=== PATIENT | female | born 1955 | race Caucasian/White ===

== ENCOUNTER → 2021-09-25 12:33 | Outpatient (CLI) | payer SELFPAY ==
[2021-09-25 13:05] LABS: Urine Drug Scr, Empl Non-NIDA See Separate Report
== END ==
DX: Z02.83 Encounter for blood-alcohol and blood-drug test (principal)
CPT/HCPCS: 81099

== ENCOUNTER → 2023-11-22 08:11 | Outpatient (CLI) | payer MEDICARE, SELFPAY ==
[2023-11-22 09:04] LABS: Add Manual Diff / Slide Review NO; Basophils Absolute Auto 100 /uL (0-100); Eosinophils Absolute Auto 100 /uL (0-450); Eosinophils Percent Auto 2.6 % (2-4); Hemoglobin 12.3 g/dL (12.0-16.0); Lymphocytes Absolute Auto 1300 /uL (1100-4500); Lymphocytes Percent Auto 25.9 % (25-40); Mean Corpuscular HGB Conc 33.2 % (30-36); Mean Corpuscular Hemoglobin 28.8 PG (26-34); Mean Corpuscular Volume 86.7 fL (80-100); Monocytes Absolute Auto 300 /uL (0-900); Monocytes Percent Auto 5.9 % (3-14); Neutrophils Absolute Auto 3300 /uL (1500-7000); Neutrophils Percent Auto 64.6 % (50-75); Platelet Count 186 X10^3/uL (150-400); Red Blood Cell Count 4.27 X10^6/uL (4.0-5.2); Red Cell Distribution Width 14.1 % (11.6-14.8); White Blood Cell Count 5.1 X10^3/uL (4.5-11.0)
[2023-11-22 09:11] LABS: Hemoglobin A1C% w Est Avg Glu 6.4 % (4.0-6.0)
[2023-11-22 09:25] LABS: Alanine Aminotransferase 12 IU/L (<35); Albumin 4.4 g/dL (3.5-5.0); Albumin Globulin Ratio 1.8 (1.0-2.8); Alkaline Phosphatase 75 U/L (38-126); Aspartate Aminotransferase 21 IU/L (14-36); BUN Creatinine Ratio 23.4 (6-22); Bilirubin Total 0.5 mg/dL (0.2-1.3); Blood Urea Nitrogen 15 mg/dL (7-17); Carbon Dioxide 26 mmol/L (22-32); Chloride 111 mmol/L (98-107); Cholesterol 146 mg/dL (140-199); Estimated Glomerular Filt Rate > 60 mL/min (>60); Globulin 2.5 g/dL (1.7-4.1); Glucose 102 mg/dL (80-110); HDL Cholesterol 58 mg/dL (40-60); HEMOLYSIS < 15 (0-50); LDL Cholesterol Calculated 69 mg/dL (<100); Potassium 4.1 mmol/L (3.4-5.1); Sodium 140 mmol/L (137-145); Total Protein 6.9 g/dL (6.3-8.2); Triglycerides 93 mg/dL (35-150)
[2023-11-22 10:40] LABS: Creatinine Urine Random 142.8 mg/dL
[2023-11-22 10:44] LABS: Microalbumi Creatinin Ratio Ur 4.9 ug/mg CR (<30); Microalbumin Urine Random 0.7 mg/dL (0-1.6)
== END ==
PROVIDERS: PCP Family Medicine; Referring Provider Family Medicine; Visit Provider Family Medicine
DX: Z00.00 Encounter for general adult medical examination without abnormal findings (principal); E11.9 Type 2 diabetes mellitus without complications; I10 Essential (primary) hypertension; E78.5 Hyperlipidemia, unspecified
CPT/HCPCS: 36415; 80053; 80061; 82043; 82570; 83036; 85025

== ENCOUNTER → 2024-01-12 09:48 | Outpatient (CLI) | payer MEDICARE, SELFPAY ==
[2024-01-12 11:34] LABS: COVID-19 CEPHEID 4-PLEX PCR Negative (Negative); Influenza A - CEPHEID Flu A NEGATIVE (NEGATIVE); Influenza B - CEPHEID Flu B NEGATIVE (NEGATIVE); Respiratory Syncytial Virus Negative (Negative)
== END ==
PROVIDERS: PCP Family Medicine; Visit Provider Nurse Practitioner Family
DX: R05.9 Cough, unspecified (principal)
CPT/HCPCS: 0241U

== ENCOUNTER 2024-01-12 10:09 | Emergency (ER) | payer MEDICARE, SELFPAY ==
[2024-01-12] VITALS (8 sets, daily range): BP systolic 114–147; BP diastolic 55–73; PULSE 72–87; RESP 18; TEMP 37; O2SAT 95–99; BMI 33.4
--- NOTE | 2024-01-12 13:44 | PC.NURSE ---
pt has cough that started two days ago that feels different than usual. she was cleaning her cpap the other night and states that she thinks she may have left a tissue and aspirated it. walk in swabbed her and pt states that shes negative for everything. no respiratory hx, but does have hx of abnormal ecg's and hypertension.
--- NOTE | 2024-01-12 14:00 | EKG_ITS ---
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
--- NOTE | 2024-01-12 14:01 | DI.RAD.S_ITS ---
PROCEDURE: XR CHEST 2V INDICATIONS: cough TECHNIQUE: 2 views of the chest were acquired. COMPARISON: None. FINDINGS: Surgical changes and devices: None. Lungs and pleura: Lungs are clear. No pleural effusions or pneumothorax. Mediastinum: Mediastinal contours are normal. Heart size is normal. Bones and chest wall: No suspicious bony abnormalities. Soft tissues appear unremarkable. IMPRESSION: No acute cardiopulmonary abnormality is seen. Dictated by: David Stewart M.D. on 01/12/2024 at 15:19 Approved by: David Stewart M.D. on 01/12/2024 at 15:20
[2024-01-12 14:26] LABS: Add Manual Diff / Slide Review NO; Basophils Absolute Auto 100 /uL (0-100); Basophils Percent Auto 1.3 % (0-2); Eosinophils Absolute Auto 200 /uL (0-450); Eosinophils Percent Auto 2.7 % (2-4); Hematocrit 36.2 % (36-46); Hemoglobin 12.2 g/dL (12.0-16.0); Lymphocytes Absolute Auto 1500 /uL (1100-4500); Lymphocytes Percent Auto 23.8 % (25-40); Mean Corpuscular HGB Conc 33.7 % (30-36); Mean Corpuscular Hemoglobin 29.1 PG (26-34); Mean Corpuscular Volume 86.3 fL (80-100); Monocytes Absolute Auto 500 /uL (0-900); Monocytes Percent Auto 8.7 % (3-14); Neutrophils Absolute Auto 3900 /uL (1500-7000); Neutrophils Percent Auto 63.5 % (50-75); Platelet Count 198 X10^3/uL (150-400); Red Cell Distribution Width 14.3 % (11.6-14.8); White Blood Cell Count 6.2 X10^3/uL (4.5-11.0)
[2024-01-12 14:34] LABS: INR 0.9 (0.9-1.3); Prothrombin Time 10.6 SECONDS (9.4-12.5)
[2024-01-12 14:37] LABS: PTT Partial Thromboplastin Tim 31 SECONDS (25.1-36.5)
[2024-01-12 14:39] LABS: Alanine Aminotransferase 13 IU/L (<35); Albumin 4.6 g/dL (3.5-5.0); Albumin Globulin Ratio 1.8 (1.0-2.8); Alkaline Phosphatase 87 U/L (38-126); Aspartate Aminotransferase 24 IU/L (14-36); BUN Creatinine Ratio 20.3 (6-22); Bilirubin Total 0.6 mg/dL (0.2-1.3); Blood Urea Nitrogen 15 mg/dL (7-17); Calcium 8.9 mg/dL (8.4-10.2); Carbon Dioxide 23 mmol/L (22-32); Chloride 110 mmol/L (98-107); Creatine Kinase 172 U/L (30-135); Estimated Glomerular Filt Rate > 60 mL/min (>60); Globulin 2.5 g/dL (1.7-4.1); Glucose 94 mg/dL (80-110); HEMOLYSIS < 15 (0-50); Lipase 75 U/L (23-300); Magnesium 2.3 mg/dL (1.6-2.3); Potassium 4.1 mmol/L (3.4-5.1); Sodium 141 mmol/L (137-145); Total Protein 7.1 g/dL (6.3-8.2)
[2024-01-12 14:50] LABS: Troponin I < 0.012 ng/mL (0.01-0.034)
--- NOTE | 2024-01-12 15:07 | ED_ITS ---
HPI - General Adult General Chief complaint: Upper Respiratory Symptoms Stated complaint: bad cough t-2 pain in chest Time Seen by Provider: 01/12/24 14:16 Source: patient Mode of arrival: Ambulatory History of Present Illness HPI narrative: Patient left without being seen Related Data Home Medications Medication Instructions Recorded Confirmed albuterol sulfate 90 mcg/actuation 2 puff inhalation Q4-6H PRN 11/11/23 01/12/24 aerosol inhaler wheezing alprazolam 0.5 mg tablet mg PO 11/11/23 01/12/24 atenolol 25 mg tablet 25 mg PO DAILY 11/11/23 01/12/24 blood sugar diagnostic (OneTouch #10 ea 11/11/23 01/12/24 Verio test strips) losartan 50 mg tablet 50 mg PO DAILY 11/11/23 01/12/24 metformin 500 mg tablet,extended 500 mg PO BID 11/11/23 01/12/24 release 24 hr aspirin 81 mg tablet,delayed 81 mg PO DAILY 11/16/23 01/12/24 release (Adult Low Dose Aspirin) atorvastatin 20 mg tablet 30 mg PO DAILY 12/07/23 01/12/24 Allergies Allergy/AdvReac Type Severity Reaction Status Date / Time tree nut Allergy Severe Anaphylaxis Verified 01/12/24 10:49 Penicillins Allergy Mild Hives Verified 01/12/24 10:49 Patient History Medical History (Updated 01/12/24 @ 15:54 by Chery Watts RN) Wears glasses Seborrheic keratosis Actinic keratosis Raynaud's disease Sleep apnea Allergies Situational anxiety TIA (transient ischemic attack) Knee pain Hip pain Lumbar disc disease Tuberculosis Mumps Measles Chicken pox Cataracts, bilateral (~2020) Herpes Fibroids Diverticular disease Deep vein thrombosis (~2013) Cardiac arrhythmia BCC (basal cell carcinoma) Obesity (BMI 30.0-34.9) Hyperlipidemia Hypertension Diabetes mellitus type 2, controlled, without complications (~1999) Family History (Updated 12/26/23 @ 20:09 by Lauren Mcginnis) Father Hyperlipidemia Mother Hyperlipidemia Sister Hyperlipidemia Sister Hypertension Hyperlipidemia Grandmother Diabetes mellitus Family/Other Hypothyroidism Social History Smoking Status: Never smoker Smoking Status: Never smoker alcohol intake frequency: 0-2 drinks per day Substance Use Type: does not use Exam Initial Vital Signs Initial Vital Signs: Vital Signs Temperature 98.6 F 01/12/24 10:45 Pulse Rate 87 01/12/24 10:45 Respiratory Rate 18 01/12/24 10:45 Blood Pressure 143/68 H 01/12/24 10:45 Pulse Oximetry 97 01/12/24 10:45 Oxygen Delivery Method Room Air 01/12/24 10:45 Course Orders Ordered: ED Orders 01/12/24 14:00 EKG-12 Lead Stat 01/12/24 14:01 Chest [XR chest 2V] Stat 01/12/24 14:15 Complete Blood Count AUTO DIFF Stat Comprehensive Metabolic Panel Stat Lipase Stat Magnesium Stat PTT Partial Thromboplastin Dominick Stat Prothrombin Time INR Stat Troponin & CK Cardiac Panel Stat 01/12/24 14:46 EKG-12 Lead Stat Vital Signs Vital signs: Vital Signs - 8 hr 01/12/24 13:16 01/12/24 13:16 01/12/24 13:30 Pulse Rate 79 80 Blood Pressure 147/67 H Pulse Oximetry 98 97 01/12/24 13:30 01/12/24 14:00 01/12/24 14:00 Pulse Rate 75 Blood Pressure 117/58 L 114/57 L Pulse Oximetry 99 01/12/24 14:48 01/12/24 14:49 01/12/24 14:49 Pulse Rate 72 73 Blood Pressure 137/73 Pulse Oximetry 97 99 01/12/24 15:00 01/12/24 15:00 01/12/24 15:30 Pulse Rate 76 80 Blood Pressure 121/55 L Pulse Oximetry 95 99 01/12/24 15:30 Pulse Rate Blood Pressure 125/60 Pulse Oximetry Medical Decision Making Lab Data 01/12/24 14:15 01/12/24 14:15 Labs: Lab Results 01/12/24 Range/Units 14:15 WBC 6.2 (4.5-11.0) X10^3/uL RBC 4.20 (4.0-5.2) X10^6/uL Hgb 12.2 (12.0-16.0) g/dL Hct 36.2 (36-46) % MCV 86.3 (80-100) fL MCH 29.1 (26-34) PG MCHC 33.7 (30-36) % RDW 14.3 (11.6-14.8) % Plt Count 198 (150-400) X10^3/uL Neut % (Auto) 63.5 (50-75) % Lymph % (Auto) 23.8 L (25-40) % [place] % (Auto) 8.7 (3-14) % Eos % (Auto) 2.7 (2-4) % Baso % (Auto) 1.3 (0-2) % Neut # (Auto) 3900 (8596-1635) /uL Lymph # (Auto) 1500 (2989-8560) /uL [place] # (Auto) 500 (0-900) /uL Eos # (Auto) 200 (0-450) /uL Baso # (Auto) 100 (0-100) /uL PT 10.6 (9.4-12.5) SECONDS INR 0.9 (0.9-1.3) APTT 31 (25.1-36.5) SECONDS Sodium 141 (137-145) mmol/L Potassium 4.1 (3.4-5.1) mmol/L Chloride 110 H (98-107) mmol/L Carbon Dioxide 23 (22-32) mmol/L BUN 15 (7-17) mg/dL Creatinine 0.74 (0.52-1.04) mg/dL Estimated GFR > 60 (>60) mL/min BUN/Creatinine Ratio 20.3 (6-22) Glucose 94 (80-110) mg/dL Calcium 8.9 (8.4-10.2) mg/dL Magnesium 2.3 (1.6-2.3) mg/dL Total Bilirubin 0.6 (0.2-1.3) mg/dL AST 24 (14-36) IU/L ALT 13 (<35) IU/L Alkaline Phosphatase 87 (38-126) U/L Total Creatine Kinase 172 H (30-135) U/L Troponin I < 0.012 (0.01-0.034) ng/mL Total Protein 7.1 (6.3-8.2) g/dL Albumin 4.6 (3.5-5.0) g/dL Globulin 2.5 (1.7-4.1) g/dL Albumin/Globulin Ratio 1.8 (1.0-2.8) Lipase 75 (23-300) U/L Imaging Data Chest x-ray: Radiologist's Impression: Crystal Frances??68??F??1955 ? Allergy/Adv: tree nut, Penicillins Close Chest X-Ray (Signed) David Stewart - 01/12/24 Launch?[address] [address] XRay Report Signed Patient: Crystal Frances MR#: [id number] : 1955 Acct:[id number] Age/Sex: 68 / F Date of Service: 01/12/24 Loc: ED Accession Number: [id number] Procedure: XR chest 2V Ordering Provider: Izabela Payne D.O. PROCEDURE: XR CHEST 2V INDICATIONS: cough TECHNIQUE: 2 views of the chest were acquired. COMPARISON: None. FINDINGS: Surgical changes and devices: None. Lungs and pleura: Lungs are clear. No pleural effusions or pneumothorax. Mediastinum: Mediastinal contours are normal. Heart size is normal. Bones and chest wall: No suspicious bony abnormalities. Soft tissues appear unremarkable. IMPRESSION: No acute cardiopulmonary abnormality is seen. Dictated by: David Stewart M.D. on 01/12/2024 at 15:19 Approved by: David Stewart M.D. on 01/12/2024 at 15:20 ECG Data Attestation: I personally reviewed and interpreted this ECG as follows: Prior ECG tracings: not available for review Interpretation: Sinus rhythm rate of 71 [place] 132 QRS 88 QTC 419, U wave in lead 3 and AVF. T-wave inversion in lateral leads. No priors available for comparison. MDM Narrative Medical decision making narrative: CBC shows lymphs are low, otherwise normal white count, hemoglobin and platelets. Coags are negative chloride 110 electrolytes are normal BUN is normal, total CK is 172 troponin was less than 0.012. Discharge Plan Departure Patient Disposition: Left Without Being Seen Clinical Impression: Patient left before evaluation by physician Prescriptions: No Action aspirin [Adult Low Dose Aspirin] 81 mg tablet,delayed release (DR/EC) 81 mg PO DAILY albuterol sulfate 90 mcg/actuation HFA aerosol inhaler 2 puff inhalation Q4-6H PRN (Reason: wheezing) alprazolam 0.5 mg tablet PO atenolol 25 mg tablet 25 mg PO DAILY losartan 50 mg tablet 50 mg PO DAILY metformin 500 mg tablet extended release 24 hr 500 mg PO BID Hold Instructions: trial alternative med (DME) [employer] Verio test strips Strip See Rx Instructions .ROUTE BID Qty: 10 Rx Instructions: As directed atorvastatin 20 mg tablet 30 mg PO DAILY
--- NOTE | 2024-01-12 15:17 | PC.NURSE ---
pt expressed to this RN that she would like to leave, she believes that we are doing unnecessary things. pt is getting anxious about the mcnair of the visit
== END 2024-01-12 15:48 | disposition left against medical advice (07) ==
PROVIDERS: Emergency Provider Emergency Medicine; PCP Family Medicine
DX: R05.9 Cough, unspecified (principal); R07.9 Chest pain, unspecified; Z20.822 Contact with and (suspected) exposure to COVID-19
CPT/HCPCS: 0241U; 36415; 71046; 80053; 82550; 83690; 83735; 84484; 85025; 85610; 85730; 93005; 99283

== ENCOUNTER → 2024-01-25 09:03 | Outpatient (CLI) | payer MEDICARE, SELFPAY ==
--- NOTE | 2024-02-09 17:29 | DIAB.MNT ---
Initial Diabetes Medical Nutrition Therapy Assessment Name: Crystal Frances Date: 01/25/24 Time: 910-10a Dx: Type II Diabetes Crystal presents for initial Dm visit. PMH of Dm x 3 years. Has had DM education. States she has never had a hgA1c above 7%. Recent labs 6.4%. Main questions today are about nutrition and GLP1 therapy. States she is wondering if she would need GLP1 therapy indefinitely if starting. States daughter lost 40# on Mounjaro. has questions regarding muscle loss with these meds and protein recs. Endorses heart hx (including abnormal EKG, cardiac plaque, HTN, HLD) and sees cardiology. 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 Diet Recall: 830a: 1 rye toast with sun butter, 2c coffee with soy milk 1130a: oatmeal x 1c, dried berries and evin 2-5p: cottage cheese and fruit OR toast OR 1-2 mini candies OR high fiber tortillas with cheese OR corn ships 630p: protein with veggie and sometimes brown chidi or half potato 730p: small sf hard candy Anthropometrics: Ht: 5'1.5 Wt: 177.25# 11/2023 Physical Activity: 30 min walking 3-4x per week, knee pain sometimes impairs walking, plans to ask for PT referral Self-Monitoring Blood Glucose: Checks FB-115 usually. Sometimes checks pc: 130s, oatmeal sometimes up to 210mg/dl. Under 70 infrequently and feels unwell, no other symptoms. Diabetes Medications: 500mg Metfomrin BID Pertinent Labs: 6.4% hgA1c 10/2023 Past Medical History: (Last Updated 12/26/23 @ 20:06 by Lauren Mcginnis) Actinic keratosis Allergies BCC (basal cell carcinoma) Cardiac arrhythmia Cataracts, bilateral (~2020) Chicken pox Deep vein thrombosis (~2013) Diabetes mellitus type 2, controlled, without complications (~1999) Diverticular disease Fibroids Herpes Hip pain Hyperlipidemia Hypertension Knee pain Lumbar disc disease Measles Mumps Obesity (BMI 30.0-34.9) Raynaud's disease Seborrheic keratosis Situational anxiety Flying Sleep apnea CPAP TIA (transient ischemic attack) Maybe Tuberculosis Wears glasses Nutrition Rx: Carbohydrates: Meal:30-45g Snack:15-30g Protein: 80-95g per day Nutrition Diagnosis: - Food and nutrition related knowledge deficit r/t needing refresher on carb recs and pairing macros aeb diet recall and pt report Intervention: This participant was very receptive. Provided appropriate educational handouts. Discussed the following topics: Completed intake assessment. Discussed barriers to care. BG review and impact of meals Plate Method, impact of macronutrients on blood sugar, meal timing, carbohydrate counting, pairing macronutrients and spreading out carbohydrates for better blood glucose management Recommended servings for carbohydrates at meals and snacks [facility] nutrition Brainstormed appropriate meal/snack ideas based on food preferences GLP1 RA impact on appetite and likelihood of jail use if taking for wt loss LBM loss with any wt loss, especially fast wt loss Protein recs Role of physical activity and following provider guidelines for safety Created SMART goals for patient self-care and success. Goals: Add protein to oatmeal Set afternoon snack and pair macros Aim for 80-95g protein per day (20-30g at meals 7-14g at snacks) Follow-up: [facility]AME [facility]IXON follow-up prn. Crystal would like to follow-up prn, which this RD agrees with. Encouraged her to call or message with questions or f/u needs prn. Yuliet Townsend, MA[facility], [facility] Certified Diabetes Care and Card Painter P: [phone] Thank you for this referral
== END ==
LOC: DIET 09:04
PROVIDERS: PCP Family Medicine; Referring Provider Family Medicine
DX: E11.9 Type 2 diabetes mellitus without complications (principal); Z71.3 Dietary counseling and surveillance; Z79.84 Long term (current) use of oral hypoglycemic drugs
CPT/HCPCS: 97802

== ENCOUNTER → 2024-03-13 10:58 | Outpatient (CLI) | payer MEDICARE, SELFPAY ==
--- NOTE | 2024-03-13 10:59 | DI.RAD.S_ITS ---
PROCEDURE: XR KNEE LT 3V INDICATIONS: Left knee pain TECHNIQUE: 3 views of the knee were acquired. COMPARISON: None. FINDINGS: Bones: Osteopenia. No acute fractures or dislocations. No suspicious bony lesions. Soft tissues: No radiographically evident suprapatellar joint effusion. IMPRESSION: No acute bony abnormality or significant effusion. Dictated by: Max Stephenson M.D. on 03/13/2024 at 15:30 Approved by: Max Stephenson M.D. on 03/13/2024 at 15:32
== END ==
PROVIDERS: PCP Student in an Organized Health Care Education/Training Program; Referring Provider Student in an Organized Health Care Education/Training Program; Visit Provider Student in an Organized Health Care Education/Training Program
DX: M25.562 Pain in left knee (principal)
CPT/HCPCS: 73562

== ENCOUNTER → 2024-05-02 11:31 | Outpatient (CLI) | payer MEDICARE, SELFPAY ==
--- NOTE | 2024-05-02 11:32 | DI.RAD.S_ITS ---
PROCEDURE: XR DEXA AXIAL SKELETON INDICATIONS: Bone Density Screening COMPARISON: None. FINDINGS: Lumbar Spine: Bone mineral density 1.041 g/cm2, T score -0.1. Left Hip: Bone mineral density 0.829 g/cm2, T score -0.9. Left Femoral Neck: Bone mineral density 0.729 g/cm2, T score -1.1. Right Hip: Bone mineral density 0.950 g/cm2, T score 0.1. Right Femoral Neck: Bone mineral density 0.814 g/cm2, T score -0.3. Fracture Risk Calculation (when applicable): 10-year fracture risk of a major osteoporotic fracture 8.5 % and of a hip fracture 0.8 %. (T score greater or equal to -1.0 to: NORMAL) (T score from -1.1 to -2.4: OSTEOPENIA) (T score less than or equal to -2.5: OSTEOPOROSIS) IMPRESSION: By WHO criteria, patient has osteopenia. Follow-up guidelines as follows: Osteoporosis: Consider a repeat DEXA and Vertebral Fracture Assessment (VFA) exam in 2 years or sooner if medically necessary, to reassess this patient's status. Osteopenia: Consider a repeat DEXA in 2-3 years to reassess this patient's status, or if there is a new clinical indication. Normal: Consider a repeat DEXA in 5 years or sooner, or if there is a new clinical indication. All treatment decisions require clinical judgment and consideration of individual patient factors, including patient preferences, comorbidities, previous drug use, risk factors not captured in the FRAX model (e.g., frailty, falls, vitamin D deficiency, increased bone turnover, interval significant decline in bone density ) and possible under- or over-estimation of fracture risk by FRAX. In addition, the NOF Guide recommends that FDA-approved medical therapies be considered in postmenopausal women and men age >= 50 years with a: * Hip or vertebral (clinical or morphometric) fracture * T-score of <=-2.5 at the spine or hip * Ten-year fracture probability by FRAX of >= 3% for hip fracture or >=20% for major osteoporotic fracture. People with diagnosed cases of osteoporosis or at high risk for fracture should have regular bone mineral density tests. For patients eligible for Medicare, routine testing is allowed once every 2 years. The testing frequency can be increased to one year for patients who have rapidly progressing disease, those who are receiving or discontinuing medical therapy to restore bone mass, or have additional risk factors. Approved by: Gavin Joseph M.D. on 05/02/2024 at 15:56
== END ==
PROVIDERS: PCP Student in an Organized Health Care Education/Training Program; Referring Provider Student in an Organized Health Care Education/Training Program; Visit Provider Student in an Organized Health Care Education/Training Program
DX: M85.89 Other specified disorders of bone density and structure, multiple sites (principal)
CPT/HCPCS: 77080

== ENCOUNTER → 2024-05-15 09:36 | Outpatient (CLI) | payer MEDICARE, SELFPAY ==
[2024-05-15 11:18] LABS: TSH w/ Reflex to FT4 1.66 uIU/mL (0.47-4.68)
[2024-05-15 12:16] LABS: Hemoglobin A1C% w Est Avg Glu 5.9 % (4.0-6.0)
== END ==
LOC: LAB 09:37
PROVIDERS: PCP Student in an Organized Health Care Education/Training Program; Referring Provider Student in an Organized Health Care Education/Training Program; Visit Provider Student in an Organized Health Care Education/Training Program
DX: E11.9 Type 2 diabetes mellitus without complications (principal); R42 Dizziness and giddiness
CPT/HCPCS: 36415; 83036; 84443

== ENCOUNTER → 2024-07-24 09:25 | Outpatient (CLI) | payer MEDICARE, SELFPAY ==
--- NOTE | 2024-07-24 09:46 | EKG_ITS ---
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
[2024-07-24 09:48] LABS: Appearance Urine UA CLEAR; Bilirubin Urine UA NEGATIVE (NEGATIVE); Color Urine UA YELLOW; Glucose Urine UA NEGATIVE (Negative); Ketones Urine UA NEGATIVE (NEGATIVE); Leukocyte Esterase Urine UA NEGATIVE (NEGATIVE); Nitrite Urine UA NEGATIVE (Negative); Occult Blood Urine UA NEGATIVE (Negative); Protein Urine UA NEGATIVE (Negative); Specific Gravity Urine UA <=1.005 (1.000-1.035); Urobilinogen Urine UA 0.2 E.U./dL (0.2); pH Urine UA 5.5 (4.5-8.0)
[2024-07-24 09:57] LABS: Bacteria Urine Occasional (0-1); RBC Urine 0-1/HPF (0-5/HPF); Squamous Epithelial Cell Urine 0-1 /HPF (0-5/HPF); Urine Volume 10mL (spun); WBC Urine 0-1/HPF (0-5/HPF)
[2024-07-24 09:58] LABS: Culture Indicated Urine Cult Not Indicated
[2024-07-24 10:18] LABS: Add Manual Diff / Slide Review NO; Basophils Absolute Auto 100 /uL (0-100); Eosinophils Absolute Auto 200 /uL (0-450); Eosinophils Percent Auto 2.1 % (2-4); Hematocrit 39.2 % (36-46); Hemoglobin 13.2 g/dL (12.0-16.0); Lymphocytes Absolute Auto 1700 /uL (1100-4500); Lymphocytes Percent Auto 22.5 % (25-40); Mean Corpuscular HGB Conc 33.6 % (30-36); Mean Corpuscular Hemoglobin 29.2 PG (26-34); Mean Corpuscular Volume 86.9 fL (80-100); Monocytes Absolute Auto 400 /uL (0-900); Neutrophils Absolute Auto 5200 /uL (1500-7000); Neutrophils Percent Auto 69.4 % (50-75); Platelet Count 235 X10^3/uL (150-400); Red Blood Cell Count 4.51 X10^6/uL (4.0-5.2); Red Cell Distribution Width 14.7 % (11.6-14.8); White Blood Cell Count 7.4 X10^3/uL (4.5-11.0)
[2024-07-24 10:42] LABS: Hemoglobin A1C% w Est Avg Glu 5.5 % (4.0-6.0)
[2024-07-24 10:52] LABS: Blood Urea Nitrogen 18 mg/dL (7-17); Calcium 9.7 mg/dL (8.4-10.2); Carbon Dioxide 25 mmol/L (22-32); Chloride 105 mmol/L (98-107); Estimated Glomerular Filt Rate > 60 mL/min (>60); Glucose 92 mg/dL (80-110); HEMOLYSIS < 15 (0-50); Potassium 3.9 mmol/L (3.4-5.1); Sodium 139 mmol/L (137-145)
== END ==
PROVIDERS: PCP Student in an Organized Health Care Education/Training Program; Referring Provider Orthopaedic Surgery; Visit Provider Orthopaedic Surgery
DX: Z01.818 Encounter for other preprocedural examination (principal); R73.9 Hyperglycemia, unspecified; Z01.812 Encounter for preprocedural laboratory examination; N39.0 Urinary tract infection, site not specified; E78.5 Hyperlipidemia, unspecified; I10 Essential (primary) hypertension; E66.9 Obesity, unspecified; E11.9 Type 2 diabetes mellitus without complications
CPT/HCPCS: 36415; 80048; 81001; 83036; 85025; 93005

== ENCOUNTER → 2024-07-31 07:27 | Outpatient (CLI) | payer MEDICARE, SELFPAY ==
--- NOTE | 2024-07-31 07:28 | DI.MRI.S_ITS ---
PROCEDURE: MR HEAD/BRAIN WO CON INDICATIONS: Carotid artery aneurysm TECHNIQUE: Non-contrast axial T1 spin echo, axial T2 fast spin echo, sagittal and axial FLAIR, coronal T2 fast spin echo, axial gradient echo, axial diffusion and ADC through the brain. COMPARISON: None. FINDINGS: Image quality: Excellent. CSF spaces: Ventricles appear symmetric in size and shape. Basal cisterns are patent. No extra-axial fluid collections. Brain: No intracranial bleeds or mass effects. There is cerebral volume loss for age. There are periventricular and deep white matter chronic small vessel ischemic changes. Brainstem appears normal. Diffusion-weighted images show no acute infarct. No chronic ischemic insults. Normal intravascular flow voids are present. Skull and face: Calvarial bone marrow is normal in signal. Orbits are normal. Sinuses: Sinuses and mastoids are clear. IMPRESSION: No acute intracranial abnormalities. Mild age-related global volume loss and chronic microvascular ischemic changes. History of carotid artery aneurysm. The arterial system is not well evaluated on this exam. If further evaluation of an aneurysm is warranted, CT angio of the head or MR angio of the head can be obtained. Dictated by: Robert Lovett M.D. on 07/31/2024 at 13:24 Approved by: Robert Lovett M.D. on 07/31/2024 at 13:26
[2024-07-31 08:34] LABS: Appearance Urine UA CLEAR; Bilirubin Urine UA NEGATIVE (NEGATIVE); Color Urine UA YELLOW; Glucose Urine UA NEGATIVE (Negative); Ketones Urine UA NEGATIVE (NEGATIVE); Leukocyte Esterase Urine UA NEGATIVE (NEGATIVE); Nitrite Urine UA NEGATIVE (Negative); Occult Blood Urine UA NEGATIVE (Negative); Protein Urine UA NEGATIVE (Negative); Specific Gravity Urine UA <=1.005 (1.000-1.035); Urobilinogen Urine UA 0.2 E.U./dL (0.2)
[2024-07-31 08:43] LABS: pH Urine UA 5.5 (4.5-8.0)
[2024-07-31 08:44] LABS: Bacteria Urine None Seen; Culture Indicated Urine Cult Not Indicated; RBC Urine None Seen (0-5/HPF); Squamous Epithelial Cell Urine None Seen (0-5/HPF); Urine Volume 10mL (spun); WBC Urine None Seen (0-5/HPF)
== END ==
PROVIDERS: PCP Student in an Organized Health Care Education/Training Program; Referring Provider Student in an Organized Health Care Education/Training Program; Visit Provider Student in an Organized Health Care Education/Training Program
DX: I72.0 Aneurysm of carotid artery (principal); R79.89 Other specified abnormal findings of blood chemistry
CPT/HCPCS: 70551; 81001

== ENCOUNTER → 2024-08-14 10:23 | Outpatient (CLI) | payer MEDICARE, SELFPAY ==
--- NOTE | 2024-08-14 10:24 | DI.CT.S_ITS ---
PROCEDURE: CT ANGIO HEAD AND NECK INDICATIONS: carotid artery aneurysm f/u TECHNIQUE: After the administration of intravenous contrast, 1 mm thick sections acquired from the aortic arch through the [place]. 3-dimensional qaxcaul-jgarvlglb-wsdqheccbp (MIP) and/or volume rendering reformats were acquired of the central intracranial vasculature and neck separately. For radiation dose reduction, the following was used: automated exposure control, adjustment of mA and/or kV according to patient size. COMPARISON: Outside Facility, MR, MR ANGIO NECK W CON, 05/20/2023, 12:30. Outside Facility, MR, MR HEAD/BRAIN WO CON, 05/20/2023, 13:04. Outside Facility, MR, MR ANGIO HEAD WO CON, 05/20/2023, 13:04. [facility], MR, MR HEAD/BRAIN WO CON, 07/31/2024, 7:47. FINDINGS: Image quality: There is streak artifact seen through the level of the shoulders. The BRAIN: CSF spaces: Ventricles are normal in size and shape. Basal cisterns are patent. No extra-axial fluid collections. Brain: No significant abnormality of the brain can be seen. Skull and face: Calvarium and facial bones appear intact, without suspicious lesions. Orbits appear normal. Sinuses: Sinuses and mastoids are clear. HEAD CT ANGIOGRAPHY: Anterior circulation: On the prior outside examination, there is described an aneurysm involving the right supraclinoid intracranial internal carotid artery. No definite aneurysm is seen at this site. A intracranial internal carotid arteries elsewhere also appear normal. The flow within the paired anterior cerebral arteries is normal and symmetric. The flow within the middle cerebral arteries is normal and symmetric. The anterior communicating artery is seen. No aneurysms are seen. Posterior circulation: Visualized portions of the vertebral arteries demonstrate normal caliber, and join to form a normal appearing basilar artery. Flow within the posterior cerebral arteries is normal and symmetric. No aneurysms are seen. NECK CT ANGIOGRAPHY: Carotid system: The great vessels demonstrate a conventional anatomy as they arise from the aortic arch. The origins of the common carotid arteries appear patent. The common carotid arteries demonstrate normal caliber and courses. The bifurcation regions are both widely patent. The internal carotid arteries demonstrate normal calibers and courses. Posterior circulation: The origins of the vertebral arteries both appear widely patent. The more superior extracranial portions of both vertebral arteries also demonstrate normal courses and calibers. They join to form a normal appearing basilar artery. Soft tissues: Visualized neck soft tissues demonstrate no suspicious abnormalities. Bones: No suspicious bony lesions. Visualized cervical spine appears normally aligned. 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 No intracranial aneurysm is seen. No significant intracranial arterial abnormality is seen. No significant abnormality is seen within the arteries of the neck. Any quantitative measurements of stenosis were performed using NASCET criteria. Dictated by: Eduardo Vrema M.D. on 08/14/2024 at 13:45 Approved by: Eduardo Verma M.D. on 08/14/2024 at 13:50
== END ==
LOC: CT 10:24
PROVIDERS: PCP Student in an Organized Health Care Education/Training Program; Referring Provider Student in an Organized Health Care Education/Training Program; Visit Provider Student in an Organized Health Care Education/Training Program
DX: I72.0 Aneurysm of carotid artery (principal)
CPT/HCPCS: 70496; 70498; Q9967

== ENCOUNTER 2024-08-28 05:57 | Day surgery (SDC) | payer MEDICARE, SELFPAY ==
[2024-08-21 08:17] VITALS: BMI 27.6
[2024-08-28] VITALS (17 sets, daily range): BP systolic 93–128; BP diastolic 44–74; PULSE 15–124; RESP 10–21; TEMP 35.8–37.1; O2SAT 95–100; BMI 28.3
--- NOTE | 2024-08-28 06:00 | DI.RAD.S_ITS ---
PROCEDURE: XR HIP W PEL IF DONE LT 2V INDICATIONS: HAJA TECHNIQUE: AP pelvis and lateral view of the hip acquired. COMPARISON: [facility], CR, [id number] W PEL IF PERFORMED, 08/28/2024, 9:14. FINDINGS: Bones: Patient is status post left hip arthroplasty, with hardware components in expected positions. The hip joint appears congruent. The visualized bony structures appear intact. Soft tissues: Overlying postoperative changes are noted. No suspicious soft tissue densities. IMPRESSION: Expected post-operative appearance of a hip arthroplasty. Dictated by: Robert Lovett M.D. on 08/28/2024 at 15:15 Approved by: Robert Lovett M.D. on 08/28/2024 at 15:15
[2024-08-28] MEDS: VANCOMYCIN 1,000 MG/200 ML PIGGYBACK 200 MG IV (07:01)
[2024-08-28] MEDS: LACTATED RINGERS 1,000 ML 42 ML IV ×3 (07:03→11:10)
[2024-08-28] MEDS: CELECOXIB 200 MG CAPSULE PO (07:04)
[2024-08-28] MEDS: ACETAMINOPHEN 325 MG TABLET 975 MG PO (07:04)
--- NOTE | 2024-08-28 07:29 | SUR.OPER ---
Supine on padded [place] table with bilateral legs secured in padded positioning boots and suspended in positioning spars, operative leg in traction per surgeon. Head on one pillow. Arm on non-operative side secured on padded armboard <90 degrees abduction. Arm on operative side padded and resting across chest then secured with tape over sheet. Padded perineal post in place per surgeon.
--- NOTE | 2024-08-28 07:44 | PM.PREOP ---
Pre-operative Note Interval Note History & Physical reviewed/Exam performed by Physician: Yes Changes to H&P: No
[2024-08-28] MEDS: CEFAZOLIN 2 GM/100 ML PREMIX 100 ML IV ×2 (08:00→16:30)
[2024-08-28] MEDS: BUPIVACAINE 0.25% W/ EPI 30 ML VIAL 60 ML INJ (08:25)
[2024-08-28] MEDS: BUPIVACAINE LIPOSOME 266 MG/20 ML VIAL INJ (08:26)
--- NOTE | 2024-08-28 10:04 | DI.RAD.S_ITS ---
PROCEDURE: [id number] W PEL IF PERFORMED INDICATIONS: TOTAL LEFT HIP ARTHROPLASTY TECHNIQUE: 4 intraoperative fluoroscopic view(s) of the left hip(s). COMPARISON: None. FINDINGS: Intraoperative fluoroscopic images shows left total hip arthroplasty in progress. IMPRESSION: Fluoro guidance was provided intraoperatively for left total hip arthroplasty performed by ordering physician. Dictated by: Salo Aguilera M.D. on 08/28/2024 at 10:28 Approved by: Salo Aguilera M.D. on 08/28/2024 at 10:29
--- NOTE | 2024-08-28 10:32 | P.OP_ITS ---
Operative Date/Time/Diagnoses Date of procedure: 08/28/24 Time of procedure: 08:00 Pre-op diagnosis: Left hip AVN and OA Post-op diagnosis: same Procedure & Clinicians Procedure: Left total hip arthroplasty anterior approach Same procedure as scheduled: Yes Indications: The patient has had progressively worsening left hip pain with radiographic changes consistent with arthritis. Non-operative management has failed and the patient has requested total hip replacement. The risks, benefits and alternatives to surgery were discussed with the patient prior to proceeding. Risks discussed included, but were not limited to, failure to relieve pain, leg length discrepancy, dislocation, stiffness, infection, nerve damage, deep venous thrombosis, pulmonary embolism, stroke, coma, heart attack, permanent paralysis and , as well as the potential need for eventual revision of the prosthetic. Surgeon: Yeu Quigley Supervisor Filling And Packing: Britni Parker Anesthesia Type: General and Spinal Operative Notes Findings: Very small head, soft bone, adequate stability Closure Type: primary Specimen(s): none sent Prosthetic devices, grafts, tissues, transplants, or devices: Quigley and nephew 44 mm R3, neutral poly liner,one 6.5 mm screw, 28 x -3 cobalt chrome head, polar stem size 0 with collar standard Estimated Blood Loss (mL): 250 Blood products transfused: none Procedure in detail: The patient was brought to the operating room. Patient was carefully positioned in the supine position. Time-out was performed and antibiotics were given. Anesthesia was induced. She was positioned in the on the table in order to allow hyperextension of the hip. The left lower extremity was prepped and draped in a standard sterile fashion. An anterior left hip incision was made 1 fingerbreadth lateral to the anterior superior iliac spine and extended distally towards the greater trochanter. Dissection was carried out through skin and subcutaneous tissues. Superficial hemostasis was achieved. The fascia over the tensor fascia mynor was defined and incised with a knife. Two Allis clamps were used to grasp the fascia. Tensor fascia mynor was retracted laterally. A gelpi retractor was placed. Dissection was carried out down along the neck. The circumflex vessels were carefully identified and cauterized with the Aqua Mantis. The PA was used during the procedure and was essential for intraoperative retraction and safe implantation of the components. There was good visualization of the femoral neck. A Cobra was placed superior to the neck and the gluteus fibers were carefully stripped from that superior aspect of the capsule. A 2nd retractor was placed along the inferior aspect of the neck. The rectus insertion along the capsule was partially released. A 3rd retractor that was then gently placed over the rim of the acetabulum under the rectus. Capsule was carefully incised and released from the intertrochanteric line circumferentially superior to the mid sagittal line and inferiorly to the mid sagittal line until the lesser trochanter was palpable. A tag stitch was placed both in the superior and inferior limb of the capsular insertion. Along the acetabulum capsule was also released up to the mid sagittal 12:00 position. A portion of the labrum was resected. A saw was used to perform an osteotomy at the level of the intertrochanteric line and the junction of the superior femoral neck leaving approximately 1 finger breath of residual inferior neck above the lesser trochanter. A 2nd cut was made along the femoral neck at the base of the head and a napkin ring of neck was removed. Corkscrew was placed in the femoral head and the head was removed without difficulty. Retractors were then repositioned around the acetabulum. Residual labrum was resected and additional osteophytes were re moved. A reamer that was 4 mm below the templated size was placed by hand in the acetabulum and it was reamed to centralize the acetabulum. It was then reamed up to 2 under the templated size and fluoroscopy was brought in to confirm the position of the reaming and depth of reaming. I reamed 1 under the anticipated size. A trial cup was placed and noted that it was appropriately sized and fluoroscopy confirmed position and depth. The component was open and inserted without difficulty fluoroscopic imaging was used to confirm that the cup had been adequately seated and was well positioned. It was further stabilized with a single screw. Neutral poly liner was placed. The cup was tested and noted to be stable. Attention was then directed to the femur. The femur was gently hyperextended ad ditional capsular release was performed as needed in order to allow adequate visualization of the proximal femur with elevation of the femur. Patient was placed in a hyperextended slightly adducted position with maximum external rotation. Box osteotome was used to check for any residual neck as well as sclerotic bone along the trochanter. [place] pepper was placed in the femur. Additional broaching was performed. Canal finder was used to determine the alignment of the canal and position. Size 1 broach was placed. The canal was then appropriately broached up to the templated size as long as there was adequate stability of the broach and serial advancement of the broach without excessive impingement. Specific attention was directed at avoiding varus attempting to direct the distal aspect of the broach more anteriorly and avoiding excessive anteversion. Trial reduction showed acceptable range of motion, good stability, no posterior impingement, muslim of leg length and appropriate lateral shuck. I also hyperflexed the hip and checked that there was no impingement anteriorly and there was good stability with flexion, adduction and internal rotation. Marcaine and Exparel were injected. The stem was placed without difficulty. Repeat trial reduction and x-ray showed acceptable overall position, length, and no evidence of the femoral fracture. Final head was placed. Wound was meticulously irrigated with normal saline. The hip was reduced and additional Exparel and Marcaine were injected. The capsule was closed with interrupted nonabsorbable sutures. The fascia of the tensor was closed with interrupted and running Vicryl. No drain was placed. Any tensor fascia mynor muscle that appeared to be contused or injured which was a minimal amount was carefully resected. Capsule around the tensor was injected with Exparel and Marcaine. The skin was closed with barbed stitches for the subcutaneous tissue and skin. We also used surgical glue. The wound was dressed sterilely. Brief Betadine soak was also used and was meticulously irrigated with normal saline. Patient was transferred to recovery room in satisfactory condition. Complications: none Post-operative Condition: stable Disposition: Acute Care Plan for aftercare: The patient will be maintained on a standard total hip replacement protocol with weight bearing as tolerated and anterior hip precautions. The patient will receive Xarelto starting tomorrow and sequential compression devices for DVT prophylaxis. The patient will be discharged home when safe for the home environment.
[2024-08-28] MEDS: HYDROMORPHONE 1 MG INJ IV (11:24)
--- NOTE | 2024-08-28 11:40 | SUR.PHASEI ---
Report called to Mariah Winn
--- NOTE | 2024-08-28 11:51 | SUR.PHASEI ---
Patient transferred to the floor by DORINDA Marques, with her belongings bag and CPAP.
--- NOTE | 2024-08-28 13:15 | PC.NURSE ---
Pt to room 222 via bed from PACU. Pt is awake alert and oriented. IV infusing as ordered. SCD's on and running, Bed alarm on for safety. O2 sat 100% on RA. Pt initially c/o dizziness which has since resolved. Oriented Pt to room, call light, bed controls, and tv controls. Pt agrees to call for assistance as needed and to not get up without assistance.
--- NOTE | 2024-08-28 14:35 | PT.IIE ---
Current Diagnoses Unilateral primary osteoarthritis, left hip (08/28/24) Surgery Performed Operation Date: 08/28/24 07:45 Actual Procedures p Total Hip Arthroplasty/Anterior Approach(Left) - Yue Quigley MD Surgical History (Last Updated 08/21/24 @ 10:16 by Rozina Correa, RN) History of History of hysteroscopy Hx of appendectomy Hx of tubal ligation Medical History (Last Updated 08/21/24 @ 10:23 by Rozina Correa RN) Abscess (2013) Actinic keratosis Allergies BCC (basal cell carcinoma) Cardiac arrhythmia Cataracts, bilateral (~2020) Chicken pox Deep vein thrombosis (~2013) Diabetes mellitus type 2, controlled, without complications (~1999) Diverticular disease Fibroids Herpes Hip pain History of COVID-19 (~2022) History of prolonged Q-T interval on ECG (2013) Hyperlipidemia Hypertension Knee pain Lumbar disc disease Measles Mumps Obesity (BMI 30.0-34.9) Osteoarthritis Raynaud's disease Seborrheic keratosis Situational anxiety Sleep apnea Tuberculosis Wears glasses Physical Therapy Inpatient Evaluation/Re-Eval M1 PT/OT-IP Prior Functional Status Start: 08/28/24 16:05 Freq: NEEDED Status: Active Protocol: Document 08/28/24 14:35 AB (Rec: 08/28/24 16:31 AB [id number]) Medical Review Prior Functional Status Medical History Reviewed Yes Communication able to make needs known Mobility and Gait pt stated that she was modified independent with all mobilities and ambulation without AD but started using a SPC ~ 1 1/2 ago due to hip pain Social History Household Members spouse Living Arrangements House Number of Floors (Floors) One Floor Number of Stairs To Enter/Railing? 1 step to enter; 1 step down to living room Home Environment Standard Height Toilet,Walk in Shower,Tub/Shower Home Equipment Front Wheel Walker,Straight Cane,Shower Seat without Backrest,Hand Held Shower M2 PT-IP Current Condition Start: 08/28/24 16:05 Freq: NEEDED Status: Active Protocol: Document 08/28/24 14:35 AB (Rec: 08/28/24 16:31 AB [id number]) Physical Therapy Current Condition Current Condition Evaluation Date 08/28/24 Treatment Diagnosis s/p L HAJA anterior; difficulty in walking Onset Date 08/28/24 M3 PT-IP Subjective Start: 08/28/24 16:05 Freq: NEEDED Status: Active Protocol: Document 08/28/24 14:35 AB (Rec: 08/28/24 16:31 AB [id number]) Subjective Physical Therapy Visit Type Type Initial Evaluation Visit Start Time 14:35 Visit Stop Time 15:20 Number of RUM PROCESSING OPERATOR Visits 0 Physical Therapy Visit Comments Patient Comments agreeable to do PT Therapy Pain Assessment Pain When Pain Assessed At Rest Pain Present Pain Present Pain Reported Location Left hip Intensity 2 Scale Used Numeric (0 - 10) Pain Management Techniques Apply Cold,Distraction, Modification of Treatment,Re- positioning,Timing of Activity with Medications M4 PT-IP Mobility and Gait Start: 08/28/24 16:05 Freq: NEEDED Status: Active Protocol: Document 08/28/24 14:35 AB (Rec: 08/28/24 16:31 AB [id number]) PT-Bed Mobility Assessment Supine to Sit Supine to Sit Maximum Assistance,1 Person Assistance,Bedrails PT-Transfer Assessment Sit to and From Stand Sit to and from Stand Maximum Assistance,1 Person Assistance,Use of Upper Extremities Equipment Transfer Assistive Device Gait Belt Orthotic/Prosthetic Devices or Brace: No Transfers Transfer Destination Chair,Bedside Commode Transfer Technique ambulated Transfer Ability Level of Assist Maximum Assistance,1 Person Assistance,Use of Upper Extremities Comments Mobility Comments pt in bed and agreeable to do PT. obtained PLOF and home set up. educated pt on anterior hip precautions. post-op folder provided to pt. pt requesting to use the toilet. BP: 93/52 completed supine to sit max A and max cues. pt able to sit on EOb SBA. BP: 107/56. completed sit to stand max A and max cues. ambulated ~ 3 ft using FWW max A. unsteady gait and (+) L knee buckling requiring assist and max cues. placed bedside commode closer to pt. max A for controlled sitting on commode. sit to stand from commode max A and step transfer to chair using FWW max A and max cues. pt agreed to stay up on the chair. positioned pt on the chair. call light and table placed within reach. set up caregiver training tomorrow at 930 am. pt will inform spouse. Gait Assessment Gait Gait Assistance Required: Maximum Assistance Distance (Feet) 3 Able to Maintain Weight Bearing Status Yes During Gait Assistive Devices Assistive Device Gait Belt,Front Wheeled Walker Orthotic/Prosthetic Devices or Brace: No Gait Deviations General Gait Pattern Antalgic,Decreased Stride Length,Decreased Feet Clearance,Step-to Gait Factors Limiting Gait Function Factors Limiting Gait Function Decreased Activity Tolerance, Decreased Sensation,Decreased Strength,Difficulty Following Directions,Limited Range of Motion,Pain,Poor Balance,Poor Safety Awareness PT-Balance Assessment Sitting Balance and Reactions Static Sitting Balance Ability Normal Dynamic Sitting Balance Ability Good Standing Balance and Reactions Static Standing Balance Ability Poor Dynamic Standing Balance Ability Poor Device Used FWW M5 PT-IP Objective Assessments Start: 08/28/24 16:05 Freq: NEEDED Status: Active Protocol: Document 08/28/24 14:35 AB (Rec: 08/28/24 16:31 AB [id number]) Orientation Orientation/Cognition Level of Alertness Alert Orientation Name,Place,Situation Language Function Ability No Deficits Noted Safety Awareness Decreased Safety Awareness Memory Description No Deficits Noted Gross Range of Motion Lower Extremity ROM Assessment Within Functional Limits Strength Lower Extremity Strength Assessment Left Impaired Hip 3-/5 Knee 3+/5 Sensation Assessment Sensation Gross Sensation Left LE Impaired Sensation Description Numbness Comments Sensation Comments pt initially stated that sensation on BLE are fine but during MMT stated that anterior thigh is still numb Muscle Tone Muscle Tone WNL Yes M6 PT-IP Treatment Start: 08/28/24 16:05 Freq: NEEDED Status: Active Protocol: Document 08/28/24 14:35 AB (Rec: 08/28/24 16:31 AB [id number]) Physical Therapy Treatment Education Education Provided Precautions,Weight Bearing Status,Post-Op Packet,Safety M7 PT-IP Assessment and Plan Start: 08/28/24 16:05 Freq: NEEDED Status: Active Protocol: Document 08/28/24 14:35 AB (Rec: 08/28/24 16:31 AB [id number]) PT Summary Assessment and Plan Potential Rehabilitation Potential Fair Status of Condition at Evaluation Evolving Summary Impairments Pain,ROM,Strength,Balance, Coordination,Sensation,Tone, Cognition,Bed Mobility, Transfers,Gait,Activity Tolerance Assessment Summary pt is a 69 y/o F s/p L HAJA anterior approach POD 0. pt has L hip anterior precautions and is WBAT. pt requiring max A with mobility at this time. pt still has slight numbness on L anterior thigh affecting LLE motor control. caregiver training set up for tomorrow at 930 am. will continue to assess for safe d/ c plan. Goals Bed Mobility Goal Independent Transfer Goal Independent,Front Wheeled Walker Gait Goal Independent,Front Wheel Walker Gait Distance 200 Other Goals up/down 1 step using FWW SBA Days to Meet Goals 5 Frequency of Treatment Frequency Of Treatment Twice a Day Treatment Plan Physical Therapy Treatment Plan Bed Mobility Training,Transfer Training,Gait Training, Therapeutic Exercise,Balance Retraining,Post Op Education, Discharge Planning,Hot or Cold Pack,Neuromuscular Re-ed, Coordination Retraining,Manual Therapy Precautions Anterior Hip Precautions No Hip Extension,No Hip External Rotation Weight Bearing Status Weight Bearing Status Weight Bear as Tolerated Allowed Weight Bearing Amount (enter % LLE WBAT or #) (%) Recommendations To Nursing Amount of Assist Needed 2 Person Assist Discharge Recommendations PT Discharge Recommendations Home with Assistance, Outpatient PT Transportation Needs at Discharge Private Vehicle
--- NOTE | 2024-08-28 16:30 | OT.IP.EVAL ---
Current Diagnoses Unilateral primary osteoarthritis, left hip (08/28/24) Surgery Performed Operation Date: 08/28/24 07:45 Actual Procedures p Total Hip Arthroplasty/Anterior Approach(Left) - Yue Quigley MD Past Medical History (Last Updated 08/21/24 @ 10:23 by Rozina Correa, RN) Abscess (2013) Actinic keratosis Allergies BCC (basal cell carcinoma) Cardiac arrhythmia Cataracts, bilateral (~2020) Chicken pox Deep vein thrombosis (~2013) Diabetes mellitus type 2, controlled, without complications (~1999) Diverticular disease Fibroids Herpes Hip pain History of COVID-19 (~2022) History of prolonged Q-T interval on ECG (2013) Hyperlipidemia Hypertension Knee pain Lumbar disc disease Measles Mumps Obesity (BMI 30.0-34.9) Osteoarthritis Raynaud's disease Seborrheic keratosis Situational anxiety Sleep apnea Tuberculosis Wears glasses Surgical History (Last Updated 08/21/24 @ 10:16 by Rozina Correa RN) History of History of hysteroscopy Hx of appendectomy Hx of tubal ligation Occupational Therapy Inpatient Evaluation/Re-Eval M1 PT/OT-IP Prior Functional Status Start: 08/28/24 16:05 Freq: NEEDED Status: Active Protocol: Document 08/28/24 16:43 [facility] (Rec: 08/28/24 16:53 [facility] [id number]) Medical Review Prior Functional Status Medical History Reviewed Yes Communication able to make needs known Mobility and Gait pt stated that she was modified independent with all mobilities and ambulation without AD but started using a SPC ~ 1 1/2 ago due to hip pain Activities of Daily Living and IADL's Pt states able to do with increased time. Social History Household Members spouse Living Arrangements House Number of Floors (Floors) One Floor Number of Stairs To Enter/Railing? 1 step to enter; 1 step down to living room Home Environment Standard Height Toilet,Walk in Shower,Tub/Shower Home Equipment Front Wheel Walker,Straight Cane,Shower Seat without Backrest,Hand Held Shower M2 OT-IP Current Condition Start: 08/28/24 16:42 Freq: Status: Active Protocol: Document 08/28/24 16:43 [facility] (Rec: 08/28/24 16:53 [facility] [id number]) Occupational Therapy Current Condition Current Condition Evaluation Date 08/28/24 Treatment Diagnosis S/P L HAJA Anterior approach Diagnosis Onset Date 08/28/24 Post Operative Precautions Anterior Hip Precautions No Hip Extension,No Hip External Rotation M3 OT- IP Subjective and Pain Start: 08/28/24 16:42 Freq: Status: Active Protocol: Document 08/28/24 16:43 [facility] (Rec: 08/28/24 16:53 [facility] [id number]) OT- Subjective Occupational Therapy Visit Type Type Initial Evaluation Visit Start Time 15:55 Visit Stop Time 16:30 Occupational Therapy Visit Comments Patient Comments Pt agreed to get up with OT. Patient/Caregiver Goals TO go home. OT Pain Assessment Pain When Pain Assessed At Rest Pain Present Pain Present Pain Reported Location Left hip Intensity 2 Scale Used Numeric (0 - 10) M4 OT- IP ADL's Start: 08/28/24 16:42 Freq: Status: Active Protocol: Document 08/28/24 16:43 [facility] (Rec: 08/28/24 16:53 [facility] [id number]) OT [id number] Comments OT Self-Feeding Comments Not at meal time. OT ADL-Grooming Comments OT Grooming Comments Not performed. OT ADL-Oral Care Comments Oral Care Comments Not performed. OT ADL-Dressing Comments OT Dressing Comments Educated to dress the LLE first and take out last. Use of LB dressing equipment as needed. OT ADL-Toileting Comments OT Toileting Comments Educated to be mindful of her LLE positioning during hygiene needs. A BSC will be beneficial especially if pt decides to sleep in the recliner initially. Pt agreed that use of pads will be helpful not to hurry to the bathroom. OT ADL-Bathing Comments OT Bathing Comments Spoke of bandage care while showering. M5 OT- IP IADL's Start: 08/28/24 16:42 Freq: Status: Active Protocol: Document 08/28/24 16:43 [facility] (Rec: 08/28/24 16:53 [facility] [id number]) OT-Instrumental Activities of Daily Living Home Safety Awareness Awareness of Need for Assistance at Home Good Awareness Home Safety Comments Pt a little groggy and aware to have her assist her. Meal Preparation Meal Preparation Caregiver Provides Assist Aws Solution Architect Aws Solution Architect Caregiver Provides Assist M6 OT- IP Functional Cognition Start: 08/28/24 16:42 Freq: Status: Active Protocol: Document 08/28/24 16:43 [facility] (Rec: 08/28/24 16:53 [facility] [id number]) Cognitive Factors Limiting Selfcare Function Cognitive Ability Level of Alertness Alert Patient Orientation Name,Place,Situation Attention Span Ability Capable of Focused Attention, Capable of Sustained Attention Ability to Follow Commands Able to Follow One Step Commands Safety Awareness Decreased Ability to Apply Precautions Cognitive Comments Cognitive Assessment Comments Pt needing reminders of her hip precaution while mobilizing and for bed mobility needs. Pt will benefit from more practice and caregiver training. OT- Vision and Hearing OT- Vision Assessment Visual Acuity Glasses All The Time Visual Attentiveness WFL Occular Pursuits WFL M7 OT- IP Mobility and Balance Start: 08/28/24 16:42 Freq: Status: Active Protocol: Document 08/28/24 16:43 [facility] (Rec: 08/28/24 16:53 [facility] [id number]) OT-Transfer Assessment Sit to and From Stand Sit to and from Stand Minimal Assistance Comments Mobility Comments DMITRI to stand and vc to push on the armrest of the recliner to stand to the FWW. MODA x1 to stand step forwards and back, Pt's LLE still a little unsteady at time time. OT- Balance Assessment Sitting Balance and Reactions Static Sitting Balance Ability Normal Dynamic Sitting Balance Ability Good Standing Balance and Reactions Static Standing Balance Ability Poor Dynamic Standing Balance Ability Poor M8 OT- IP Objective Assessments Start: 08/28/24 16:42 Freq: Status: Active Protocol: Document 08/28/24 16:43 [facility] (Rec: 08/28/24 16:53 [facility] [id number]) OT Gross Range of Motion Upper Extremity Range of Motion Assessment Within Functional Limits OT Strength Upper Extremity Strength Assessment Within Functional Limits M9 OT- IP Assessment and Plan Start: 08/28/24 16:42 Freq: Status: Active Protocol: Document 08/28/24 16:43 [facility] (Rec: 08/28/24 16:53 [facility] [id number]) OT Summary Assessment and Plan Potential Rehabilitation Potential Excellent Analytic Complexity at Evaluation Low Summary OT Impairments Pain,Balance,Functional Mobility,Grooming,Dressing, Toileting,Bathing,Toilet Transfers,Shower Transfers, Activity Tolerance Progress Towards Goals Slow Progress due to Pain,Slow Progress due to Medical Issues,Slow Progress due to Activity Tolerance Assessment Summary Pt low complexity and main barriers are step, pain, LLE still unsteady as just having surgery earlier today. Pt to go home with her to assist when medically stable. Pt will benefit from a BSC for home use. Goals Self-Feeding Goal Independent Grooming Goal Independent Dressing Goal Minimal Assistance Toileting Goal Independent Bathing Goal Minimal Assistance Toilet Transfer Goal Standby Assistance Shower Transfer Goal Contact Guard Assistance Days to Meet Goals 4 Frequency of Treatment Frequency Of Treatment Once a Day Treatment Plan OT Treatment Plan ADL Training,Functional Mobility,Patient/Family Education,Discharge Planning Other Treatment Recommendations and Next caregiver training Treatment Focus Discharge Recommendations OT Discharge Recommendations Home with 21/02 Assist Available,Outpatient PT Home Equipment Needs BSC Transportation Needs at Discharge Private Vehicle
[2024-08-28] MEDS: LACTATED RINGERS 1,000 ML 100 ML IV (18:34)
[2024-08-28] MEDS: ATORVASTATIN 20 MG TABLET PO (20:21)
[2024-08-28] MEDS: DOCUSATE 100 MG CAPSULE PO (20:21)
[2024-08-28] MEDS: ACETAMINOPHEN 325 MG TABLET 650 MG PO (21:46)
--- NOTE | 2024-08-28 22:34 | PC.NURSE ---
Addendum entered by Marzena Medina R.N. 08/28/24 23:34: Rechecked BP at 1130; 93/48 (map 59). Informed MD Whitley. No new orders. Care continues. Original Note: NOC: At beginning of shift, PCT Michael reported that pt's blood pressure was low (LA 97/47, RA 92/47, map of 59) (see VS in chart). Assessed pt; BP LA98/53 (65), 92/52 (63), denied dizziness, shortness of breath, confusion, or cold. Held scheduled losartan and atenolol, informed Coord Jenelle Lozano and notified MD Whiltey; no new orders other than continue to monitor. Rechecked later; BP 101/40 (60), pt continues to be asymptomatic. Successful transfer from bed to commode and back without issue. Will continue to monitor. Pt resting comfortably. Care continues.
[2024-08-29] MEDS: CEFAZOLIN 2 GM/100 ML PREMIX 100 ML IV (00:28)
[2024-08-29] MEDS: ACETAMINOPHEN 325 MG TABLET 650 MG PO ×2 (03:16→11:29)
[2024-08-29] MEDS: LACTATED RINGERS 1,000 ML 100 ML IV (04:14)
[2024-08-29] MEDS: BENZOCAINE/MENTHOL 1 LOZ PKT 1 EACH PO (04:23)
[2024-08-29 04:28] VITALS: BP 103/58
[2024-08-29 05:11] LABS: Hematocrit 26.2 % (36-46); Hemoglobin 8.7 g/dL (12.0-16.0)
--- NOTE | 2024-08-29 06:38 | PM.DS.1 ---
History of Present Illness History of Present Illness Date Patient Seen: 08/29/24 Time Patient Seen: 06:39 Chief complaint: OPB Narrative: Operative Date/Time/Diagnoses Date of procedure: 08/28/24 Time of procedure: 08:00 Pre-op diagnosis: Left hip AVN and OA Post-op diagnosis: same Procedure & Clinicians Procedure: Left total hip arthroplasty anterior approach Same procedure as scheduled: Yes Indications: The patient has had progressively worsening left hip pain with radiographic changes consistent with arthritis. Non-operative management has failed and the patient has requested total hip replacement. The risks, benefits and alternatives to surgery were discussed with the patient prior to proceeding. Risks discussed included, but were not limited to, failure to relieve pain, leg length discrepancy, dislocation, stiffness, infection, nerve damage, deep venous thrombosis, pulmonary embolism, stroke, coma, heart attack, permanent paralysis and , as well as the potential need for eventual revision of the prosthetic. Surgeon: Yue Quigley Sales Trader: Britni Parker Anesthesia Type: General and Spinal Operative Notes Findings: Very small head, soft bone, adequate stability Closure Type: primary Specimen(s): none sent Prosthetic devices, grafts, tissues, transplants, or devices: Quigley and nephew 44 mm R3, neutral poly liner,one 6.5 mm screw, 28 x -3 cobalt chrome head, polar stem size 0 with collar standard Estimated Blood Loss (mL): 250 Blood products transfused: none Discharge Providers Provider Discharge Date: 08/29/24 Primary care physician: Sade Enriquez MD Consults: 08/21/24 10:40 Consult to Anesthesiology Routine Comment: Consulting Provider: Anesthesiologist Reason for consultation: Surgeon requested re: Multiple medical issues 08/28/24 06:00 Consult to Anesthesiology Routine Comment: Consulting Provider: Anesthesiologist Reason for consultation: Regional block for post operative pain control Has provider been notified: No 08/28/24 12:04 Consult to Discharge Planning Routine Comment: Consult to Occupational Therapy Evaluate & Treat Comment: Physician Instructions: Evaluate and treat Consult to Physical Therapy Evaluate & Treat Comment: Physician Instructions: post op HAJA protocol Discharge provider: Nata Castañeda PA-C Summary Hospital Course Discharge Diagnosis: Left hip osteoarthritis and avascular necrosis, s/p left total hip arthroplasty Hospital Course: [facility] couse was unremarkable. On the morning of POD# 1, she was feeling well when I entered the room. Then her overnight RN came in to 'make sure I had seen her H and H and knew about her soft blood pressures' and the pt became anxious. I reassured her that the drop in H/H and BP following hip replacement was normal and that there was no reason to be concerned or take any action at this time. She worked once w/ PT yesterday and required 2 person assist d/t continued left leg numbness, so she will need to work with them again today prior to going home. She is eating and voiding without difficulty and her pain is well-controlled with oral medication. She would like to try taking oxycodone, but only half a tablet at a time. Exam Vital Signs (past 8 hours): - 08/28/24 23:32 08/29/24 04:28 Blood Pressure 93/48 L 103/58 L Oxygen Delivery Method Room Air Oxygen Flow Rate 0 Narrative Exam Narrative: 4/5 hip flexors, quadriceps, hamstrings; 5/5 PF, DF, EHL on left. Sensation to light touch intact throughout LLE, calf soft and compressible. Aquacel dressing CDI. No sign of hematoma formation at surgical site. Her SBPs overnight were in the 90s. Her HR did not exceed 100 bpm and she is making adequate amounts of urine. She denies dizziness or shortness of breath. Objective Labs 08/29/24 04:22 Labs: Laboratory Results - last 24 hr 08/29/24 04:22 Hgb 8.7 L Hct 26.2 L PFSH Medical History (Updated 08/21/24 @ 10:23 by Rozina Correa RN) History of COVID-19 (~2022) Osteoarthritis Abscess (2013) History of prolonged Q-T interval on ECG (2013) Wears glasses Seborrheic keratosis Actinic keratosis Raynaud's disease Sleep apnea Allergies Situational anxiety Knee pain Hip pain Lumbar disc disease Tuberculosis Mumps Measles Chicken pox Cataracts, bilateral (~2020) Herpes Fibroids Diverticular disease Deep vein thrombosis (~2013) Cardiac arrhythmia BCC (basal cell carcinoma) Obesity (BMI 30.0-34.9) Hyperlipidemia Hypertension Diabetes mellitus type 2, controlled, without complications (~1999) Surgical History (Updated 08/21/24 @ 10:16 by Rozina Correa RN) Hx of appendectomy History of hysteroscopy Hx of tubal ligation History of Family History (Updated 12/26/23 @ 20:09 by Lauren Mcginnis) Father Hyperlipidemia Mother Hyperlipidemia Sister Hyperlipidemia Sister Hypertension Hyperlipidemia Grandmother Diabetes mellitus Family/Other Hypothyroidism Social History household members: spouse Smoking Status: Never smoker alcohol intake: former Discharge Assessment & Plan Assessment and Plan Assessment: Left hip osteoarthritis and avascular necrosis, s/p left total hip arthroplasty Acute anemia d/t expected surgical blood loss. Plan of Treatment: I would like Crystal to work with PT twice today prior to going home. No intervention needed at this time for acute anemia d/t expected surgical blood loss. She has her postop meds at home and will start Xarelto later today for VTE prophylaxis. Outpt PT, f/u in office as scheduled. Discharge Plan Discharge Plan Patient Disposition: Home Provider Discharge Comment: Start Xarelto daily on the evening of 08/29/2024 and continue for 35 days. Hold aspirin while taking Xarelto. Discharge orders & Medications Discharge Orders: Discharge (Order); Ordered 08/29/24 Ordered By: Nata Castañeda Prescriptions: Continued atorvastatin 20 mg tablet 20 mg PO BEDTIME aspirin [Adult Low Dose Aspirin] 81 mg tablet,delayed release (DR/EC) 81 mg PO QPM alprazolam 0.5 mg tablet 0.5 mg PO PRN PRN (Reason: Flying) (DME) OneTouch Verio test strips Strip See Rx Instructions .ROUTE BID Qty: 10 Rx Instructions: As directed losartan 50 mg tablet 50 mg PO BEDTIME atenolol 25 mg tablet 25 mg PO BEDTIME tirzepatide 7.5 mg/0.5 mL pen injector 5 mg SUBCUT QWEEK Patient Comments: Injects every Follow up/Referrals: Sanjay Laurent PA-C [[facility]] - 09/07/24 11:00 am (Appt:09/07 @ 11:00 with Jessica ANTOINE @ [facility] [place] Sara andres ) Sade Enriquez MD [Primary Care Provider] - Diet/Activity/Treatments Diet: Diet as Tolerated Activity: Weightbearing as tolerated. Anterior hip precautions. Cold/Heat Therapy: Ice to hip as needed for pain. Skin/Wound/Dressing Care Report to your healthcare provider any signs of infection, such as:: chills, fever, night sweats, unusual drainage and unusual redness Dressing: May shower. Leave dressing in place until follow up in office. No bathing or otherwise soaking incision. Call the office if the dressing becomes saturated inside. Visit Report/Discharge Packet Instructions: DI for Hip Replacement, DI for Prescription Opioid Use Stand Alone Forms: Patient Portal/API, Surgery Discharge Discharge Data Primary Care Provider: Sade Enriquez Attending Provider: Yue Quigley VTE Deep Vein Thrombosis/Pulmonary Embolism Present on Admission: No
[2024-08-29] MEDS: OXYCODONE IR 5 MG TABLET 2.5 MG PO ×2 (08:08→16:25)
[2024-08-29] MEDS: DOCUSATE 100 MG CAPSULE PO (08:50)
[2024-08-29 09:07] VITALS: O2SAT 98
--- NOTE | 2024-08-29 09:35 | PT.IPTN ---
Current Diagnoses Unilateral primary osteoarthritis, left hip (08/28/24) Surgery Performed Operation Date: 08/28/24 07:45 Actual Procedures p Total Hip Arthroplasty/Anterior Approach(Left) - Yue Quigley MD Physical Therapy Treatment Note M2 PT-IP Current Condition Start: 08/28/24 16:05 Freq: NEEDED Status: Active Protocol: Document 08/28/24 14:35 AB (Rec: 08/28/24 16:31 AB [id number]) Physical Therapy Current Condition Current Condition Evaluation Date 08/28/24 Treatment Diagnosis s/p L HAJA anterior; difficulty in walking Onset Date 08/28/24 M3 PT-IP Subjective Start: 08/28/24 16:05 Freq: NEEDED Status: Active Protocol: Document 08/29/24 09:35 AB (Rec: 08/29/24 12:36 AB [id number]) Subjective Physical Therapy Visit Type Type Treatment Note Visit Start Time 09:35 Visit Stop Time 10:25 Number of DISTANCE EDUCATION DIRECTOR Visits 0 Physical Therapy Visit Comments Patient Comments agreeable to do PT Therapy Pain Assessment Pain When Pain Assessed At Rest Pain Present Pain Present Pain Reported Location Left hip Intensity 5 Scale Used Numeric (0 - 10) Pain Management Techniques Apply Cold,Distraction, Modification of Treatment,Re- positioning,Timing of Activity with Medications M4 PT-IP Mobility and Gait Start: 08/28/24 16:05 Freq: NEEDED Status: Active Protocol: Document 08/29/24 09:35 AB (Rec: 08/29/24 12:36 AB [id number]) PT-Bed Mobility Assessment Supine to Sit Supine to Sit Minimal Assistance Sit to Supine Sit to Supine Minimal Assistance PT-Transfer Assessment Sit to and From Stand Sit to and from Stand Contact Guard Assistance,1 Person Assistance,Use of Upper Extremities Equipment Transfer Assistive Device Gait Belt,Front Wheeled Walker Orthotic/Prosthetic Devices or Brace: No Transfers Transfer Destination Chair Transfer Technique ambulated Transfer Ability Level of Assist Contact Guard Assistance,1 Person Assistance,Use of Upper Extremities Comments Mobility Comments pt sitting on EOB and spouse in room. reviewed hip precautions with pt. educated pt and spouse on L hip anterior precautions. pt completed bed mobility sit<> supine min A and cues. educated spouse on how to assist pt. educated spouse on how to use safety belt and how to assist pt. spouse was able to put safety belt on. pt completed sit to stand from the EOB CGA with spouse assisting and ambulated in room using FWW ~ 35 ft CGA with spouse assisting. pt sat on the chair. educated pt and spouse on stair climbing. pt completed sit to stand from the chair CGA with spouse assisting and ambulated towards the platform step. pt completed up/down step using FWW min A and cues with PT initially cueing. pt repeated again with spouse assisting and providing cues. pt ambulated back to her room and sat on the chair using FWW CGA. positioned pt on the chair. call light and table placed within reach. pt and spouse without further concerns. Gait Assessment Gait Gait Assistance Required: Contact Guard Assist,1 Person Assist Distance (Feet) 35 Able to Maintain Weight Bearing Status Yes During Gait Assistive Devices Assistive Device Gait Belt,Front Wheeled Walker Orthotic/Prosthetic Devices or Brace: No Gait Deviations General Gait Pattern Antalgic Factors Limiting Gait Function Factors Limiting Gait Function Decreased Activity Tolerance, Decreased Sensation,Decreased Strength,Limited Range of Motion,Pain,Poor Balance,Poor Safety Awareness Stair Climbing Assessment Evaluation Level of Assist On Stairs Minimal Assistance,1 Person Assistance Devices Stair Climbing Assistive Devices Front Wheel Walker Technique/Endurance Stair Climbing Direction Ascend and Descend Stair Climbing Technique Step to Step Number of Steps Climbed 1 Stair Climbing Set # Repetitions (reps) 2 M5 PT-IP Objective Assessments Start: 08/28/24 16:05 Freq: NEEDED Status: Active Protocol: Document 08/28/24 14:35 AB (Rec: 08/28/24 16:31 AB [id number]) Orientation Orientation/Cognition Level of Alertness Alert Orientation Name,Place,Situation Language Function Ability No Deficits Noted Safety Awareness Decreased Safety Awareness Memory Description No Deficits Noted Gross Range of Motion Lower Extremity ROM Assessment Within Functional Limits Strength Lower Extremity Strength Assessment Left Impaired Hip 3-/5 Knee 3+/5 Sensation Assessment Sensation Gross Sensation Left LE Impaired Sensation Description Numbness Comments Sensation Comments pt initially stated that sensation on BLE are fine but during MMT stated that anterior thigh is still numb Muscle Tone Muscle Tone WNL Yes M6 PT-IP Treatment Start: 08/28/24 16:05 Freq: NEEDED Status: Active Protocol: Document 08/29/24 09:35 AB (Rec: 08/29/24 12:36 AB [id number]) Physical Therapy Treatment Education Education Provided Precautions,Weight Bearing Status,Safety M7 PT-IP Assessment and Plan Start: 08/28/24 16:05 Freq: NEEDED Status: Active Protocol: Document 08/29/24 09:35 AB (Rec: 08/29/24 12:36 AB [id number]) PT Summary Assessment and Plan Potential Rehabilitation Potential Good Summary Impairments Pain,ROM,Strength,Balance, Coordination,Sensation,Tone, Cognition,Bed Mobility, Transfers,Gait,Activity Tolerance Progress Towards Goals Progressing Toward Goals Assessment Summary pt requiring min A with bed mobility, CGA with transfers and ambulation and min A for stair climbing using FWW. caregiver training conducted and spouse was able to assist pt safely. pt may go home when medically stable. Goals Bed Mobility Goal Independent Transfer Goal Independent,Front Wheeled Walker Gait Goal Independent,Front Wheel Walker Gait Distance 200 Other Goals up/down 1 step using FWW SBA Days to Meet Goals 5 Frequency of Treatment Frequency Of Treatment Twice a Day Treatment Plan Physical Therapy Treatment Plan Bed Mobility Training,Transfer Training,Gait Training, Therapeutic Exercise,Balance Retraining,Post Op Education, Discharge Planning,Hot or Cold Pack,Neuromuscular Re-ed, Coordination Retraining,Manual Therapy Precautions Anterior Hip Precautions No Hip Extension,No Hip External Rotation Weight Bearing Status Weight Bearing Status Weight Bear as Tolerated Allowed Weight Bearing Amount (enter % LLE WBAT or #) (%) Recommendations To Nursing Amount of Assist Needed 1 Person Assist Discharge Recommendations PT Discharge Recommendations Home with Assistance, Outpatient PT Transportation Needs at Discharge Private Vehicle
--- NOTE | 2024-08-29 10:46 | OT.IP.TRT ---
Current Diagnoses Unilateral primary osteoarthritis, left hip (08/28/24) Surgery Performed Operation Date: 08/28/24 07:45 Actual Procedures p Total Hip Arthroplasty/Anterior Approach(Left) - Yue Quigley MD Occupational Therapy Treatment Note M2 OT-IP Current Condition Start: 08/28/24 16:42 Freq: Status: Active Protocol: Document 08/28/24 16:43 [facility] (Rec: 08/28/24 16:53 [facility] [id number]) Occupational Therapy Current Condition Current Condition Evaluation Date 08/28/24 Treatment Diagnosis S/P L HAJA Anterior approach Diagnosis Onset Date 08/28/24 Post Operative Precautions Anterior Hip Precautions No Hip Extension,No Hip External Rotation M3 OT- IP Subjective and Pain Start: 08/28/24 16:42 Freq: Status: Active Protocol: Document 08/29/24 12:57 [facility] (Rec: 08/29/24 13:04 [facility] [id number]) OT- Subjective Occupational Therapy Visit Type Type Treatment Note Visit Start Time 09:30 Visit Stop Time 10:46 Notes Pt seen from [id number] and [id number] Occupational Therapy Visit Comments Patient Comments Pt agreed to use the bathroom and get dressed. Pt's present for caregiver training . Patient/Caregiver Goals TO go home. OT Pain Assessment Pain When Pain Assessed At Rest Pain Present Pain Present Pain Reported Location Left hip Pain Behaviors Calling Out,Facial Grimacing, Moaning M4 OT- IP ADL's Start: 08/28/24 16:42 Freq: Status: Active Protocol: Document 08/29/24 12:57 [facility] (Rec: 08/29/24 13:04 [facility] [id number]) OT [id number] General Evaluation Self-Feeding Ability Independent OT ADL-Grooming General Evaluation Grooming Ability Standby Assistance OT ADL-Oral Care General Eval Oral Care Ability Independent OT ADL-Dressing General Eval Upper Body Dressing Ability Standby Assistance Lower Body Dressing Ability Moderate Assistance Comments OT Dressing Comments Assist to help get clothing over her LLE. Able to practice with dressing equipment. OT ADL-Toileting General Evaluation Toileting Ability Minimal Assistance Areas Needing Assistance Manage Clothing Comments OT Toileting Comments Pt's able to safety assist pt for all toileting needs. OT ADL-Bathing Comments OT Bathing Comments Pt states to shower at home. M5 OT- IP IADL's Start: 08/28/24 16:42 Freq: Status: Active Protocol: Document 08/28/24 16:43 [facility] (Rec: 08/28/24 16:53 [facility] [id number]) OT-Instrumental Activities of Daily Living Home Safety Awareness Awareness of Need for Assistance at Home Good Awareness Home Safety Comments Pt a little groggy and aware to have her assist her. Meal Preparation Meal Preparation Caregiver Provides Assist Senior Software Architect Senior Software Architect Caregiver Provides Assist M6 OT- IP Functional Cognition Start: 08/28/24 16:42 Freq: Status: Active Protocol: Document 08/29/24 12:57 [facility] (Rec: 08/29/24 13:04 [facility] [id number]) Cognitive Factors Limiting Selfcare Function Cognitive Comments Cognitive Assessment Comments Pt's doing better today and more alert. M7 OT- IP Mobility and Balance Start: 08/28/24 16:42 Freq: Status: Active Protocol: Document 08/29/24 12:57 [facility] (Rec: 08/29/24 13:04 [facility] [id number]) OT- Bed Mobility Assessment Supine to Sit Supine to Sit Assist Moderate Assistance Sit to Supine Sit to Supine Assist Moderate Assistance OT-Transfer Assessment Sit to and From Stand Sit to and from Stand Minimal Assistance Transfers Transfer Ability Contact Guard Assistance Technique Transfer Destination Bed,Chair,Toilet Devices Transfer Assistive Devices Gait Belt,Front Wheeled Walker Comments Mobility Comments Went over bed mobility, gait belt management, and transfers with pt's . OT- Balance Assessment Sitting Balance and Reactions Static Sitting Balance Ability Normal Dynamic Sitting Balance Ability Normal Standing Balance and Reactions Static Standing Balance Ability Good Dynamic Standing Balance Ability Fair M8 OT- IP Objective Assessments Start: 08/28/24 16:42 Freq: Status: Active Protocol: Document 08/28/24 16:43 [facility] (Rec: 08/28/24 16:53 [facility] [id number]) OT Gross Range of Motion Upper Extremity Range of Motion Assessment Within Functional Limits OT Strength Upper Extremity Strength Assessment Within Functional Limits M9 OT- IP Assessment and Plan Start: 08/28/24 16:42 Freq: Status: Active Protocol: Document 08/29/24 12:57 [facility] (Rec: 08/29/24 13:04 [facility] [id number]) OT Summary Assessment and Plan Potential Rehabilitation Potential Excellent Analytic Complexity at Evaluation Low Summary OT Impairments Pain,Balance,Functional Mobility,Grooming,Dressing, Toileting,Bathing,Toilet Transfers,Shower Transfers, Activity Tolerance Progress Towards Goals Progressing Toward Goals Assessment Summary Able to complete caregiver training with pt's and he was able to demonstrate good safety and understanding of how to assist pt for all ADL and mobility needs. Pt to go home with her to assist and have outpt PT. Goals Self-Feeding Goal Independent Grooming Goal Independent Dressing Goal Minimal Assistance Toileting Goal Independent Bathing Goal Minimal Assistance Toilet Transfer Goal Standby Assistance Shower Transfer Goal Contact Guard Assistance Days to Meet Goals 3 Frequency of Treatment Frequency Of Treatment Once a Day Treatment Plan OT Treatment Plan ADL Training,Functional Mobility,Patient/Family Education,Discharge Planning Discharge Recommendations OT Discharge Recommendations Home with 21/02 Assist Available,Outpatient PT Home Equipment Needs [facility] [place] Transportation Needs at Discharge Private Vehicle
--- NOTE | 2024-08-29 11:21 | CM.DANOTE ---
DCP Assessment Note pt is a 69yo F POD1 left total hip with Dr. Quigley PCP Sade Enriquez Payer AARP Medicare and self pay CLIN NURSE SPEC reviewed EMR. dc order in. Per PT/OT, rec home with assistance. CLIN NURSE SPEC entered room and introduced self and role. accompanied by spouse Adriano at bedside. lives with spouse in [facility] at baseline. DME: walker/cane at home. one step into home. Pt asked questions about ins coverage, SDC vs INPT. CLIN NURSE SPEC answered questions to best of ability. Pt denies any DCP/CM needs at this time. CLIN NURSE SPEC updated TCM team. P: dc home with spouse support and OP f/u. no identified barriers to safe dc home at this time. CM team will continue to follow as needed ANH Aparicio Discharge Planning/Care Management Advanced directive, confirm from FAMILY Start: 08/28/24 12:08 Freq: Q24H Status: Active Protocol: Document 08/28/24 12:08 CM (Rec: 08/28/24 12:50 CM [id number]) Advance Directive, confirm on record Time 12:50 Person contacted Pt Copy received No CM Discharge Assessment Start: 08/29/24 11:09 Freq: Status: Active Protocol: Document 08/29/24 11:09 SL (Rec: 08/29/24 11:20 SL [id number]) Discharge Planning Assessment Assigned [employer]ist [employer] ANH Otero DPOA/Assigned Designee Name Adriano, spouse Contact Information [phone] Advance Directives? Yes Advance Directives on File No History Provided By Patient Prior Living Arrangements House Household Members spouse Type of transporation used prior to Drives own vehicle admit Independent with ADL's Yes Is patient alert and oriented? Yes DME Already Rented / Owned FWW / Walker,Cane Barriers to Discharge No Discharge Plan Home Transportation Arrangement spouse in POV Referrals Initiated None needed Review Status In Process Please Provide Date Initial DC 08/29/24 Assessment Was Performed Next Review Type Continued Stay Review Pre-Anesthesia Assessment Start: 08/21/24 08:17 Freq: Status: Active Protocol: Document 08/21/24 08:17 CAB (Rec: 08/21/24 08:43 CAB [id number]) Pre-Anesthesia Assessment PAC Comment Phone assess 08/21/24 Patient Information Reviewed Via Phone Assessment Assessment Completed With Patient Diagnostic Results BMP/CMP,CBC,EKG Comment Labs/EKG @ [facility] 07/24/24 Primary Care Provider Sade Enriquez Seen Specialist in Last 12 Months Yes Specialist Seen Cook Syrup Maker,Emergency, Orthopedist Primary Language Surinamese Housekeeping Staff Required No Height 156.21 cm Weight 67.585 kg Body Mass Index (BMI) 27.6 Hearing Ability Hearing Impaired Visual Assist Glasses Dentition Type Teeth, Natural Present Barriers to Learning None Hx Anesthesia Reactions No Hx Family Anesthesia Reaction Yes: Son has trouble coming out of anesthesia related to pain, hypertension Hx Malignant Hyperthermia No Hx Blood Transfusions No Anesthesia Review Requested Yes: Surgeon requested re: Multiple medical issues Television Antenna Installer No alcohol intake former Smoking Status Never smoker Substance Use Type [#R] does not use Pain Present Pain Reported Musculoskeletal Symptoms Abnormal Gait,Difficulty Walking,Joint Pain History of Falling (Recent or History of No ) Patient is completely paralyzed or No completely immobile Prosthesis or Orthotic Device Cane,Front Wheel Walker Mental Status Oriented to own ability Is patient on oxygen? No Hx Sleep Apnea Yes CPAP/BIPAP use prescribed and used routinely Will Bring CPAP/BIPAP DOS Yes Currently Taking a Beta Pérez Yes: Atenolol Can You Climb a Flight of Stairs Without Yes SOB Hx Chest Pain No Hx SOB No Hx Syncope or Dizziness No Anti-Coagulant Therapy Yes: ASA 81mg-advised to continue taking per Surgeon office Has a Cook Syrup Maker Yes: Last visit 06/20/[address] Shannon @ Cardiac Testing No Hx Pacemaker/ICD No Pacemaker Rep Required? No Cardiac Clearance Received No Diet Type At Home Regular Dysphagia No Gastrointestinal Symptoms Constipation Bladder Pattern Urgency Urinary Catheter Present No Hx Urinary Self Catheterization No Diabetes Yes HgbA1C 5.5 Date 07/24/24 Comment Ac 5.5% 07/24/24. Last dose of Tirzepatide 08/16/24 Patient No Lactating No Hx Drug Resistant Organism No Presence of External or Internal Medical No Devices Comment No covid symptoms in 8 weeks Marital Status Lives With spouse Current Living Arrangements House Number of Floors (Floors) One Floor Number of Stairs To Enter/Railing? 2 steps Support System Spouse Does the Patient Have Assistance After Yes Surgery Patient Discharge Plan Description Return Home Comment Pt advised overnight length of stay per surgeon Feels Safe in Current Environment Yes Been Physically Hurt or Threatened By a No Person in Current Environment Do you have thoughts of harming yourself None or others? Are you currently considering suicide? No Do you have a plan to hurt yourself or No Plan others? Do You Have Any Spiritual Beliefs That No May Affect Your HC Choices? Do You Have Any Cultural Practices That No May Affect Your HC Choices? Comment Fly Who Can We Speak to About Patient's Care Family, friends Identifying Code for Release of Patient Declines to issue Information Health Care Proxy/Next of Kin Adriano () Health Care Proxy Emergency Contact Name Lolita (daughter) Emergency Contact Advance Directives? No Power of Central Sterilization Technician Yes Power of Central Sterilization Technician Name Adriano () Power of Central Sterilization Technician Phone Number Adriano () PAC Instructions Assistance for 24 hours post- op,Bring CPAP/BIPAP,Do not shave/clip surgical site, Durable medical equipment, Medications to take/avoid, Nasal antibiotic,No ETOH/ petroleum product on skin DOS, NPO,Post-op transportation,Pre -surgical wash,Sturdy shoes/ comfortable clothes,Do not bring valuables and remove jewelry
--- NOTE | 2024-08-29 14:16 | PC.NURSE ---
Nursing discharge note: Pt given detailed instuctions for discharge including meds, activity and signs and symptoms that would trigger a call to the MD. Observed pt several times up to the BR independently and states she feels confident she can maneuver well at home.
--- NOTE | 2024-08-29 17:03 | PC.NURSE ---
Pt out via w/c by MEDICAL DEVICE SALES CONSULTANT to POV with Spouse and all belongings
== END 2024-08-29 17:04 | disposition home or self-care (01) ==
LOC: OR 05:58 → AC 05:59
PROVIDERS: PCP Student in an Organized Health Care Education/Training Program; Referring Provider Orthopaedic Surgery; Visit Provider Orthopaedic Surgery
PROC: (CPT 27130; principal; 2024-08-28 07:45)
DX: M16.12 Unilateral primary osteoarthritis, left hip (principal); M87.9 Osteonecrosis, unspecified; G47.33 Obstructive sleep apnea (adult) (pediatric); I10 Essential (primary) hypertension; E11.9 Type 2 diabetes mellitus without complications; E78.5 Hyperlipidemia, unspecified; E66.9 Obesity, unspecified; Z79.84 Long term (current) use of oral hypoglycemic drugs; Z86.718 Personal history of other venous thrombosis and embolism
CPT/HCPCS: 27130; 36415; 73502; 73503; 76000; 82962; 85014; 85018; 97162; 97165; 97530; 97535; C1776; C1713; J0666; J0690; J1171; J2250; J2704; J3010

== ENCOUNTER → 2024-10-19 | Outpatient (CLI) | payer MEDICARE, SELFPAY ==
[2024-08-28 06:25] VITALS: BMI 28.3
--- NOTE | 2024-10-19 15:08 | DI.MRI.S_ITS ---
PROCEDURE: MR ABDOMEN LIVER PROTOCOL INDICATIONS: hepatic mass protocol TECHNIQUE: Coronal HASTE, axial 2D FLASH in- and [id number]; axial breath-hold T2 FSE. Dynamic axial VIBE during the administration of contrast; post-contrast coronal VIBE or 2D FLASH with fat saturation from the hepatic dome to the iliac crests. Optional diffusion weighted imaging and ADC may be performed. COMPARISON: [facility], CT, CT ABDOMEN PELVIS W CON, 10/02/2024, 19:01. FINDINGS: Image quality: Diagnostic Lower chest: Unremarkable lung bases. Liver: There are numerous liver cysts. No suspicious hypervascular lesion. Many of the cysts have thin septations without focal nodular enhancement Gallbladder and biliary system: Gallbladder is under distended. However, the focal area of wall thickening seen on CT appears to be focal fundal adenomyomatosis. Pancreas: No ductal dilation Spleen: Nonenlarged Adrenals: No discrete nodules Kidneys: No solid mass. No hydronephrosis. Vessels and lymph nodes: No pathologic lymph nodes by size criteria. No abdominal aortic aneurysm. The main portal vein appears patent Bowel and peritoneum: No small bowel obstruction. No pathologic ascites. Body wall: Unremarkable Bones: There are degenerative changes. No aggressive appearing osseous abnormality. IMPRESSION: Gallbladder abnormality is favored to represent benign focal fundal adenomyomatosis. If the patient has right upper quadrant symptoms, consider sonographic follow-up to assess for any underlying stones or polyps. Many liver cysts are present. No suspicious focal lesion. Dictated by: Eilseo Kruse M.D. on 10/26/2024 at 17:29 Approved by: Eliseo Kruse M.D. on 10/26/2024 at 17:35
== END ==
PROVIDERS: PCP Student in an Organized Health Care Education/Training Program; Referring Provider Student in an Organized Health Care Education/Training Program; Visit Provider Student in an Organized Health Care Education/Training Program
DX: K82.9 Disease of gallbladder, unspecified (principal); K76.89 Other specified diseases of liver; R16.0 Hepatomegaly, not elsewhere classified
CPT/HCPCS: 74183; A9579

== ENCOUNTER → 2025-01-09 08:49 | Outpatient (CLI) | payer MEDICARE, SELFPAY ==
[2024-12-31 10:23] VITALS: BMI 28.3
[2025-01-09 09:36] LABS: Add Manual Diff / Slide Review NO; Basophils Absolute Auto 100 /uL (0-100); Eosinophils Absolute Auto 100 /uL (0-450); Eosinophils Percent Auto 1.4 % (2-4); Hematocrit 36.1 % (36-46); Hemoglobin 12.4 g/dL (12.0-16.0); Lymphocytes Absolute Auto 1400 /uL (1100-4500); Lymphocytes Percent Auto 19.1 % (25-40); Mean Corpuscular HGB Conc 34.4 % (30-36); Mean Corpuscular Hemoglobin 28.9 PG (26-34); Mean Corpuscular Volume 84.1 fL (80-100); Monocytes Absolute Auto 500 /uL (0-900); Monocytes Percent Auto 6.7 % (3-14); Neutrophils Absolute Auto 5100 /uL (1500-7000); Neutrophils Percent Auto 71.8 % (50-75); Platelet Count 204 X10^3/uL (150-400); Red Blood Cell Count 4.29 X10^6/uL (4.0-5.2); Red Cell Distribution Width 15.9 % (11.6-14.8); White Blood Cell Count 7.1 X10^3/uL (4.5-11.0)
== END ==
PROVIDERS: PCP Student in an Organized Health Care Education/Training Program; Referring Provider Student in an Organized Health Care Education/Training Program; Visit Provider Student in an Organized Health Care Education/Training Program
DX: R23.3 Spontaneous ecchymoses (principal)
CPT/HCPCS: 36415; 85025

== ENCOUNTER → 2025-05-02 07:46 | Outpatient (CLI) | payer MEDICARE, SELFPAY ==
[2024-12-31 10:23] VITALS: BMI 28.3
[2025-05-02 09:04] LABS: Add Manual Diff / Slide Review NO; Hematocrit 37.9 % (36-46); Hemoglobin 12.9 g/dL (12.0-16.0); Lymphocytes Absolute Auto 1500 /uL (1100-4500); Mean Corpuscular HGB Conc 34.1 % (30-36); Mean Corpuscular Hemoglobin 29.4 PG (26-34); Mean Corpuscular Volume 86.4 fL (80-100); Platelet Count 191 X10^3/uL (150-400)
[2025-05-02 09:55] LABS: Alanine Aminotransferase 14 IU/L (<35); Albumin 4.4 g/dL (3.5-5.0); Albumin Globulin Ratio 1.9 (1.0-2.8); Alkaline Phosphatase 66 U/L (38-126); Blood Urea Nitrogen 19 mg/dL (7-17); Calcium 9.1 mg/dL (8.4-10.2); Carbon Dioxide 22 mmol/L (22-32); Chloride 108 mmol/L (98-107); Cholesterol 143 mg/dL (140-199); Estimated Glomerular Filt Rate > 60 mL/min (>60); Globulin 2.3 g/dL (1.7-4.1); Glucose 91 mg/dL (70-99); HDL Cholesterol 68 mg/dL (40-60); HEMOLYSIS < 15 (0-50); Potassium 4.3 mmol/L (3.4-5.1); Sodium 140 mmol/L (137-145); Total Protein 6.7 g/dL (6.3-8.2); Triglycerides 81 mg/dL (35-150)
[2025-05-02 10:09] LABS: Hemoglobin A1C% w Est Avg Glu 5.5 % (4.0-6.0)
[2025-05-02 10:24] LABS: Thyroid Stimulating Hormone 1.14 uIU/mL (0.47-4.68)
[2025-05-02 10:33] LABS: Microalbumi Creatinin Ratio Ur 6.0 ug/mg CR (<30)
== END ==
PROVIDERS: PCP Student in an Organized Health Care Education/Training Program; Referring Provider Student in an Organized Health Care Education/Training Program; Visit Provider Student in an Organized Health Care Education/Training Program
DX: I10 Essential (primary) hypertension (principal); E11.9 Type 2 diabetes mellitus without complications; I25.119 Atherosclerotic heart disease of native coronary artery with unspecified angina pectoris; I72.0 Aneurysm of carotid artery
CPT/HCPCS: 36415; 80053; 80061; 82043; 82570; 83036; 84443; 85025

== ENCOUNTER → 2025-05-23 09:04 | Outpatient (CLI) | payer MEDICARE, SELFPAY ==
[2024-12-31 10:23] VITALS: BMI 28.3
--- NOTE | 2025-05-23 09:06 | DI.ECHO.S_ITS ---
[facility] : : [address] : : [place] : : [id number] : : Phone: [phone] Echocardiogram Report + + :Name: JAYLEEN VAZQUEZ Study Date: 05/23/2025 Height: 61 in : :[facility] ReadingLocation: Weight: 138 lb : : Gender: Female BSA: 1.6 m2 : :: 1955 Age: 70 yrs BP: 121/78 mmHg: :Reason For Study: Hypertension : :Ordering Physician: LOS, : :CHILO Performed By: Shine Kulkarni : :Referring: CHILO MADISON : + + Interpretation Summary The ejection fraction is estimated to be 50-55%. There is apical mild hypokinesis. There is no significant valvular heart disease. Procedure: A two-dimensional transthoracic echocardiogram with color flow and Doppler was performed. The study quality was technically adequate. There is no prior echocardiogram noted for this patient. The patient was in normal sinus rhythm during the exam. Left Ventricle: The left ventricle is normal in size and wall thickness. The ejection fraction is estimated to be 50-55%. There is apical mild hypokinesis. Grade I diastolic dysfunction with normal left atrial pressure. Right Ventricle: The right ventricle is normal in size and function. Atria: The left atrial size is normal. Right atrial size is normal. There is no Doppler evidence for an interatrial shunt. Mitral Valve: The mitral valve leaflets appear to open well. There is no mitral valve stenosis. There is trace mitral regurgitation. Aortic Valve: The aortic valve is trileaflet. The aortic valve opens well. There is no aortic valve stenosis. There is trace aortic regurgitation. Tricuspid Valve: The tricuspid valve leaflets are thin and pliable. There is trace tricuspid regurgitation. Pulmonary artery pressures cannot be estimated because of the lack of a measurable TR jet velocity but the IVC suggests a CVP of around 3 mmHg. Pulmonic Valve: The pulmonic valve is not well seen, but is grossly normal. There is trace pulmonic regurgitation. Great Vessels: The aortic root is normal size. The ascending aorta is normal in size. The aortic arch is normal in size. The pulmonary artery is normal size. The IVC is of normal diameter and collapses greater than 50% with a sniff. This suggests a low right atrial pressure of 3 mm Hg. Pericardium/ Pleura There is no pericardial effusion. MMode/2D Measurements & Calculations LVIDd: 4.7 cm LVOT diam: 2.0 cm LVIDs: 2.5 cm Ao root diam: 3.0 cm FS: 46.4 % asc Aorta Diam: 2.8 cm EPSS: 0.68 cm Ao Arch Diam (Prox Trans): 2.1 cm IVSd: 0.81 cm LVPWd: 0.83 cm LV reyes. diameter/BSA (cm/m^2): 2.9 LV sys. diameter/BSA (cm/m^2): 1.5 LA A2 area: 11.9 cm2 RA long axis: 4.2 cm LA A4 area: 11.9 cm2 RA area: 7.9 cm2 LA length (vol): 4.1 cm RA vol: 12.8 ml LA vol: 29.1 ml RA : 7.9 ml/m2 LA vol index: 18.1 ml/m2 IVC diam: 1.1 cm RVD1 (basal): 1.9 cm RVD2 (mid): 1.3 cm TAPSE: 1.8 cm Doppler Measurements & Calculations Ao V2 max: 119.0 cm/sec LVOT Max Td: 85.4 cm/sec Ao V2 mean: 85.9 cm/sec LV V1 max P.9 mmHg Ao max P.7 mmHg LV V1 VTI: 15.2 cm Ao mean P.2 mmHg JEYSON(I,D): 2.2 cm2 Ao V2 VTI: 20.8 cm JEYSON(V,D): 2.2 cm2 sev ratio: 0.73 JEYSON indexed to BSA (cm^2/m^2): 1.4 MV E max td: 60.8 cm/sec PA V2 max: 90.9 cm/sec MV A max td: 76.7 cm/sec PA V2 mean: 60.1 cm/sec MV E/A: 0.79 PA mean P.7 mmHg Med Peak E' Td: 5.5 cm/sec PA pr(Accel): 43.0 mmHg E/E' med: 11.1 Lat Peak E' Td: 6.1 cm/sec E/E' lat: 10.0 E/e' average: 10.6 MV dec time: 0.17 sec SV(LVOT): 45.9 ml Qp/Qs (V,Ao): 1.0/7.9 Qp/Qs (V,LVOT): 1.0/2.4 Reading Physician:03:30 PM
== END ==
PROVIDERS: PCP Student in an Organized Health Care Education/Training Program; Referring Provider Student in an Organized Health Care Education/Training Program; Visit Provider Student in an Organized Health Care Education/Training Program
DX: I25.119 Atherosclerotic heart disease of native coronary artery with unspecified angina pectoris (principal); I72.0 Aneurysm of carotid artery; R94.31 Abnormal electrocardiogram [ECG] [EKG]; I10 Essential (primary) hypertension
CPT/HCPCS: 93306

== ENCOUNTER → 2025-07-03 09:30 | Outpatient (CLI) | payer MEDICARE, SELFPAY ==
[2024-12-31 10:23] VITALS: BMI 28.3
[2025-07-03 10:53] LABS: Alanine Aminotransferase 12 IU/L (<35); Albumin 4.5 g/dL (3.5-5.0); Albumin Globulin Ratio 1.9 (1.0-2.8); Alkaline Phosphatase 66 U/L (38-126); Blood Urea Nitrogen 15 mg/dL (7-17); Calcium 9.1 mg/dL (8.4-10.2); Carbon Dioxide 23 mmol/L (22-32); Chloride 107 mmol/L (98-107); Cholesterol 150 mg/dL (140-199); Estimated Glomerular Filt Rate > 60 mL/min (>60); Globulin 2.4 g/dL (1.7-4.1); Glucose 88 mg/dL (70-99); HDL Cholesterol 78 mg/dL (40-60); HEMOLYSIS < 15 (0-50); Potassium 4.1 mmol/L (3.4-5.1); Sodium 139 mmol/L (137-145); Total Protein 6.9 g/dL (6.3-8.2); Triglycerides 59 mg/dL (35-150)
== END ==
PROVIDERS: PCP Student in an Organized Health Care Education/Training Program; Referring Provider Nurse Practitioner; Visit Provider Nurse Practitioner
DX: E78.5 Hyperlipidemia, unspecified (principal); R93.1 Abnormal findings on diagnostic imaging of heart and coronary circulation
CPT/HCPCS: 36415; 80053; 80061

== ENCOUNTER 2025-07-12 08:23 | Day surgery (SDC) | payer MEDICARE, SELFPAY ==
[2024-12-31 10:23] VITALS: BMI 28.3
[2025-07-10 13:06] VITALS: BMI 26.2
[2025-07-12] MEDS: LACTATED RINGERS 1,000 ML 42 ML IV (09:20)
[2025-07-12] MEDS: DEXTROSE 50 % IN WATER 25 GM/50 ML SYRINGE IV (09:20)
[2025-07-12 09:40] VITALS: BP 116/77; PULSE 92; RESP 16; TEMP 36.5; O2SAT 100
--- NOTE | 2025-07-12 09:43 | PM.HP.IH.1 ---
History of Present Illness History of Present Illness Date Patient Seen: 07/12/25 Time Patient Seen: 09:43 Chief complaint: [facility] [place]: Crystal is a 70-year-old woman here for colonoscopy. Her last colonoscopy was 10 years ago and was normal. No family history of colon cancer. [facility] Medical History (Updated 07/12/25 @ 09:44 by Gee Trejo MD) Coronary artery calcification seen on CAT scan History of COVID-19 (~2022) Osteoarthritis Abscess (2013) History of prolonged Q-T interval on ECG (2013) Wears glasses Seborrheic keratosis Actinic keratosis Raynaud's disease Sleep apnea Allergies Situational anxiety Knee pain Hip pain Lumbar disc disease Tuberculosis Mumps Measles Chicken pox Cataracts, bilateral (~2020) Herpes Fibroids Diverticular disease Deep vein thrombosis (~2013) Cardiac arrhythmia BCC (basal cell carcinoma) Obesity (BMI 30.0-34.9) Hyperlipidemia Hypertension Diabetes mellitus type 2, controlled, without complications (~1999) Surgical History (Updated 07/10/25 @ 13:16 by Rozina Correa RN) History of total left hip replacement (08/28/24) [place] teeth removed History of section Hx of appendectomy History of hysteroscopy Hx of tubal ligation History of Family History (Updated 12/26/23 @ 20:09 by Lauren Mcginnis) Father Hyperlipidemia Mother Hyperlipidemia Sister Hyperlipidemia Sister Hypertension Hyperlipidemia Grandmother Diabetes mellitus Family/Other Hypothyroidism Social History household members: spouse Smoking Status: Never smoker alcohol intake: former Meds Home Medications and Allergies Home Medications ?Medication ?Instructions ?Recorded ?Confirmed ?Type blood sugar diagnostic (OneTouch #10 ea 11/11/23 04/30/25 History Verio test strips) aspirin 81 mg tablet,delayed 81 mg PO DAILY 11/26/24 07/12/25 History release (Adult Aspirin Regimen) atenolol 25 mg tablet 25 mg PO BEDTIME #90 tabs 12/31/24 07/12/25 Rx rosuvastatin 10 mg tablet (Crestor) 10 mg PO DAILY #90 tabs 12/31/24 07/12/25 Rx losartan 25 mg tablet 12.5 mg (1/2 x 25 mg) PO DAILY #90 04/30/25 07/12/25 Rx tabs tirzepatide 7.5 mg/0.5 mL 7.5 mg (0.5 mL) SUBCUT QWEEK #2 mL 04/30/25 07/12/25 Rx subcutaneous pen injector (Nilo) alprazolam 0.5 mg tablet 0.5 mg PO DAILY PRN Flying #30 tabs 05/02/25 07/12/25 Rx epinephrine 0.3 mg/0.3 mL 0.3 mg (0.3 mL) IM ONCE #2 ea 06/03/25 Rx injection, auto-injector sodium,potassium,mag sulfates 17.5 See Rx Instructions PO .COMPLEX 06/03/25 07/12/25 Rx gram-3.13 gram-1.6 gram oral soln #354 mL (Suprep Bowel Prep Kit) albuterol sulfate 90 mcg/actuation 2 puff inhalation Q6H PRN 06/24/25 07/12/25 Rx aerosol inhaler shortness of breath or wheezing #6.7 grams ezetimibe 10 mg tablet 10 mg PO DAILY 07/12/25 07/12/25 History Allergies Allergy/AdvReac Type Severity Reaction Status Date / Time Penicillins Allergy Severe Hives Verified 07/12/25 09:26 tree nut Allergy Severe Anaphylaxis Verified 04/30/25 11:11 doxycycline Allergy Unknown unknown Verified 07/12/25 09:26 Exam Vital Signs (past 8 hours): - 07/12/25 09:40 Temperature 97.7 F Pulse Rate 92 H Respiratory Rate 16 Blood Pressure 116/77 Pulse Oximetry 100 Oxygen Delivery Method Room Air Oxygen Delivery Method Room Air Const General: No acute distress Objective Labs Labs: Laboratory Results - last 24 hr 07/12/25 09:15 POC Whole Bld Glucose 66 L Assessment & Plan Assessment and plan (1) Colon cancer screening: Status: Acute Plan Colonoscopy for colon cancer screening Time-Based Coding :: [TOTAL MINUTES] spent with patient and on the chart (including review of chart, obtaining history, exam, reviewing outside data, placing orders, documenting exam and treatment plan, and counseling patient) on [DATE]. PROFEE Cctv Technician Document charge(s): No
--- NOTE | 2025-07-12 10:15 | PM.OP.COLON ---
Operative Date/Time/Diagnoses Date of procedure: 07/12/25 Time of procedure: 10:15 Pre-op diagnosis: Colon cancer screening Post-op diagnosis: same Procedure & Clinicians Study performed: Colonoscopy Same procedure(s) as scheduled: Yes Surgeon: Gee Trejo Anesthesia Type: MAC +/- Procedure Notes Procedure in detail: Surgeon: Gee Trejo MD Anesthesia: Kaylyn Cosby CRNA Procedure: The patient was brought to the endoscopy suite, placed in left lateral decubitus position. The patient was connected to monitoring devices. A time-out was performed. Sedation was administered. Once the patient was adequately sedated, a digital rectal exam was performed and was normal. The scope was then inserted and advanced to the cecum where the appendiceal orifice was identified and photographed. The scope was then slowly withdrawn over greater than 6 minutes. The mucosa was thoroughly inspected. Moderate sigmoid colon diverticulosis was found. The scope was retroflexed in the rectum. No other abnormalities were found. The scope was straightened and removed. The patient was awakened and brought to recovery. Scope withdrawal time: 6 minutes Sedation time: 15 minutes Findings: Moderate sigmoid colon diverticulosis Estimated Blood Loss: 0 Complications: none Post-procedure Recommendations: Colonoscopy in 10 years Disposition: PACU
[2025-07-12 10:17] VITALS: BP 98/66; PULSE 91; RESP 16; TEMP 36.2; O2SAT 98
[2025-07-12 10:21] VITALS: BP 100/56; PULSE 89; RESP 16; O2SAT 98
[2025-07-12 10:26] VITALS: BP 104/74; PULSE 78; RESP 16; O2SAT 100
== END 2025-07-12 10:52 | disposition home or self-care (01) ==
PROVIDERS: PCP Student in an Organized Health Care Education/Training Program; Referring Provider Student in an Organized Health Care Education/Training Program; Visit Provider Surgery
PROC: 0DJD8ZZ Inspection of Lower Intestinal Tract, Via Natural or Artificial Opening Endoscopic (ICD-10-PCS; CPT 45378; principal; 2025-07-12 09:45)
DX: Z12.11 Encounter for screening for malignant neoplasm of colon (principal); K57.30 Diverticulosis of large intestine without perforation or abscess without bleeding
CPT/HCPCS: G0121; 82962; J2704; J7120

== ENCOUNTER → 2025-07-20 09:36 | Outpatient (CLI) | payer MEDICARE, SELFPAY ==
[2024-12-31 10:23] VITALS: BMI 28.3
--- NOTE | 2025-07-20 09:39 | DI.MG.S_ITS ---
MM screening mammo BI: 07/20/2025. BI-RADS: 2 CLINICAL: 70-year old female for bilateral screening mammogram. Tyrer-Cuzick lifetime risk of 7.5%. Current reported family history of breast cancer: sister. PRIOR EXAMS Outside priors 08/20/2023, 01/05/2022, 10/28/2020. MAMMOGRAPHY TECHNIQUE: 2D and 3D (tomosynthesis) digital mammographic views obtained, with additional images as needed for full coverage. Current study was also evaluated with a Computer Aided Detection (CAD) system. DENSITY B. There are scattered areas of fibroglandular density. MAMMOGRAPHY FINDINGS Bilateral: Typically-benign vascular calcifications noted. IMPRESSION: * No evidence of malignancy with benign findings. RECOMMENDATIONS Bilateral * Annual screening mammography. OVERALL ASSESSMENT CATEGORY BI-RADS-2: Benign. The [employer] recommends annual screening mammography beginning at age 40 for women with average risk of breast cancer. ELECTRONICALLY SIGNED: David Stewart M.D. on 07/22/2025 at 07:03:07 PM PT Interpreting Station ID: [id number]
== END ==
PROVIDERS: PCP Student in an Organized Health Care Education/Training Program; Referring Provider Student in an Organized Health Care Education/Training Program; Visit Provider Student in an Organized Health Care Education/Training Program
DX: Z12.31 Encounter for screening mammogram for malignant neoplasm of breast (principal); Z80.3 Family history of malignant neoplasm of breast
CPT/HCPCS: 77063; 77067